=== PATIENT | female | born 1985 | race African-American/Black ===

== ENCOUNTER 2016-03-28 02:19 | Emergency (ER) | payer MEDICARE, MEDICAID ==
[2016-03-28] MEDS ORDERED: ONDANSETRON 4 MG ORAL DISINTEGRATING TAB (S0181) As Ordered ONE (03:12)
--- NOTE | 2016-03-28 04:30 | REPUSA ---
CLINICAL HISTORY: Pelvic pain. TECHNIQUE: Realtime sonographic images were obtained in multiple projections via TA approach. COMMENTS: The uterus is anteverted measuring 8.1x4.1 x 5.3 cm. The endometrial echo pattern is within normal li mits measuring 12.7mm in thickness. There is no evidence of free fluid within the pelvic cul-de-sac. The right ovary measures 3.3x1.4x2.1 cm and the left ovary measures 5.3 times a 2.6x3.7 mm . Both ova julien are free of solid mass. There is a left ovarian cyst measuring 3.7x2.9x2.5 cm. There is no evidence for abnormal vascularity. IMPRESSION: Left ovarian cyst measuring 3.7x2.9x2.5 cm. Thank you for your kind referral of this patient.
[2016-03-28] MEDS ORDERED: metroNIDAZOLE (FLAGYL) 500 MG TAB As Ordered ONE (05:03)
--- NOTE | 2016-03-28 05:17 | EDDOCDS ---
Physician Documentation [facility] Name: Cheyanne Lopez Age: 30 yrs Sex: Female : 1985 Arrival Date: 03/28/2016 Time: 02:19 Bed 12 Private MD: Disposition: 03/28/16 04:52 Discharged to Home/Self Care. Impression: Other ovarian cysts - left, Vaginitis, vulvitis and vulvovaginitis in diseases classified elsewhere - Bacterial Vaginosis, Noninfective gastroenteritis and colitis, unspecified - Food Poisoning. - Condition is Stable. - Discharge Instructions: Bacterial Vaginosis, Ovarian Cyst, Ovarian Cyst, Vyra-ma-Ioaq, Bacterial Vaginosis, Brdk-dg-Lvhd, Food Poisoning, Food Poisoning, Mxwj-[id number]-Scru. - Prescriptions for Flagyl 500 mg Oral Tablet - take 1 tablet by ORAL route every 12 hours for 7 days; 14 tablet. - Medication Reconciliation, Local Pharmacy Hours form. - Follow up: Private Physician; When: 1 week; Reason: Continuance of care. - Problem is an acute exacerbation. - Symptoms have improved. - Notes: FOLLOW UP WITH LYLES WOMAN MARKETING AUTOMATION ANALYST FOR FURTHER MANAGEMENT OF YOUR OVARIAN CYST. Historical: - Allergies: Coconut; Latex; - Home Meds: 1. Excedrin Extra Strength 250-250-65 mg Oral tab 1 tab as needed - PMHx: GERD; Hiatal Hernia; Obesity; PE; - Social history: Smoking status: Patient states former smoker of tobacco. Race: Black or , Ethnicity: Not or No barriers to communication noted, The patient speaks fluent [place], Preferred Language: [place]. - Family history: Not pertinent. - : The pt / caregiver states he / she is not on anticoagulants. Home medication list is obtained from the patient. - Exposure Risk Screening:: None identified. 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 1 in. (154.94 cm) (R); Pain 8/10; 02:29 Body Mass Index 49.69 (119.29 kg, 154.94 cm) jmv MDM: 03:00 UCG by Nursing ordered. mm11 03:00 Set up pelvic ordered. mm11 03:00 Ondansetron ODT (Peds >25kg) Oral Disintegrating Tablet 4 mg PO once ordered. mm11 03:01 UA Ordered. EDMS 03:01 Urine Culture Ordered. EDMS 03:37 -US Pelvic Non-Ob Complete Ordered. EDMS 03:38 GC & Chlamydia Amplification Ordered. EDMS 03:38 Wet Prep Ordered. EDMS 03:39 DUPLEX SCAN LIMITED (DOPPLER)+US Ordered. EDMS 03:53 Financial registration complete. [facility] 03:53 [facility] Payment Agreement was scanned into [employer] and attached to record. [facility] 04:31 UA Reviewed. [facility] 04:31 Wet Prep Reviewed. [facility] 04:52 metroNIDAZOLE 500 mg PO once ordered. 11 Point of Care Testing: Urine : 03:52 hCG Reading: Negative; cf2 Ranges: Administered Medications: 03:13 Drug: Ondansetron ODT (Peds >25kg) 4 mg [ondansetron 4 mg disintegrating tablet (1 cf2 tabs)] Route: PO; 05:13 Drug: metroNIDAZOLE 500 mg [metronidazole 500 mg tablet (1 tabs)] Route: PO; kas2 Signatures: Dispatcher MedHost EDMS Jose Alejandre, DO 11 Elizabeth Espinosa Adelaida Torres RN RN kas2 Maggie Holloway RN RN cf2 The chart was reviewed and I authenticate all verbal orders and agree with the evaluation and treatment provided.Attachments: 03:53 [facility] Payment Agreement [facility] MTDD
--- NOTE | 2016-03-28 05:17 | EDDOCDS ---
Nurse's Notes [facility] Name: Cheyanne Lopez Age: 30 yrs Sex: Female : 1985 Arrival Date: 03/28/2016 Time: 02:19 Bed 12 Private MD: Diagnosis: Other ovarian cysts-left;Vaginitis, vulvitis and vulvovaginitis in diseases classified elsewhere-Bacterial Vaginosis;Noninfective gastroenteritis and colitis, unspecified-Food Poisoning Presentation: 03/28 02:32 Presenting complaint: Patient states: "vomited three times after eating cheeseburger, cf2 chicken nuggets, and fries". Patient states pelvic pain x's 2 days, "stopped having sex cause it hurt". Patient states took test 2 days ago and it was negative. Adult Sepsis Screening: The patient does not have new or worsening altered mentation. Patient's respiratory rate is less than 22. Systolic blood pressure is greater than 100. Patient has a qSOFA score of 0- Negative Sepsis Screen. Suicide/Homicide risk assessment- the patient denies having any suicidal and/or homicidal ideations and does not present with any other emotional, behavioral or mental health complaints. Status: Patient is not a health service worker or dependent. Transition of care: patient was not received from another setting of care. 02:32 Acuity: ADIEL Level 4 cf2 02:32 Method Of Arrival: Ambulance cf2 Triage Assessment: 02:30 General: Appears in no apparent distress, comfortable. Pain: Denies pain. Pt Declines cf2 HIV testing. The patient is triaged at the bedside. See Assessment in Nurses Notes section of ED record. Neurological: No deficits noted. EENT: No deficits noted. Cardiovascular: No deficits noted. Respiratory: No deficits noted. : Reports cramping. 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 Excedrin Extra Strength 250-250-65 mg Oral tab 1 tab as needed - PMHx: GERD; Hiatal Hernia; Obesity; PE; - Social history: Smoking status: Patient states former smoker of tobacco. Race: Black or , Ethnicity: Not or No barriers to communication noted, The patient speaks fluent Panamanian, Preferred Language: Panamanian. - Family history: Not pertinent. - : The pt / caregiver states he / she is not on anticoagulants. Home medication list is obtained from the patient. - Exposure Risk Screening:: None identified. Screenin:38 Screening information is obtained from the patient. Fall risk: No risks identified. cf2 Assistance ADL's: requires no assistance with activities of daily living. Abuse/DV Screen: The patient / caregiver reports he/she is: not in a situation that causes fear, pain or injury. Nutritional screening: No deficits noted. Advance Directives: Further advance directive information is declined. home support is adequate. Assessment: 02:38 GI: Abdomen is flat, obese, Bowel sounds present X 4 quads. Abd is soft Abd is non cf2 tender. : Reports cramping pain. 02:49 Adult Sepsis Screening: The patient does not have new or worsening altered mentation. cf2 Patient's respiratory rate is less than 22. Systolic blood pressure is greater than 100. Patient has a qSOFA score of 0- Negative Sepsis Screen. General: Appears in no apparent distress, comfortable, Behavior is appropriate for age, cooperative. Pain: Denies pain. Neurological: No deficits noted. EENT: No deficits noted. Cardiovascular: No deficits noted. Respiratory: No deficits noted. Derm: No deficits noted. Musculoskeletal: No deficits noted. Injury Description: No known injury. 03:52 Reassessment: Patient appears in no apparent distress at this time. Patient denies pain cf2 at this time. Patient states feeling better. Patient states symptoms have improved. Vital Signs: 02:29 BP 144 / 97; Pulse 83; Resp 20; Temp 97.3(O); Pulse Ox 100% on R/A; Weight 119.29 kg jmv (R); Height 5 ft. 1 in. (154.94 cm) (R); Pain 8/10; 02:29 Body Mass Index 49.69 (119.29 kg, 154.94 cm) jmv Vitals: 02:37 Log In Time N/A - ambulance arrival. cf2 ED Course: 02:20 Patient visited by Reagan Mendes PCA. mdr 02:20 Patient moved to Waiting mdr 02:21 Nataliya Jung,RN is Primary Nurse. mdr 02:21 Patient moved to 12 mdr 02:30 Primary Nurse role handed off by Nataliya Jung,SEBASTIEN sls1 02:30 Maggie Holloway,RN is Primary Nurse. cf2 02:30 Patient visited by Maggie Holloway,SEBASTIEN. cf2 02:30 Pt greeted and oriented to ED. Patient advised of names of staff involved in care, jm location of call melissa, wait times and NPO status. Patient has correct armband on for positive identification. Placed in gown. Bed in low position. Call light in reach. Side rails up X2. 02:31 Patient visited by Burt West PCA. jmv 02:34 Triage Initiated cf2 02:38 The patient / caregiver is instructed regarding the plan of care and ED course. cf2 Property :Personal belongings accompany Pt. Door closed. Noise minimized. Visitors limited. Lights dimmed. Moved to private room. Verbal reassurance given. Warm blanket given. Pillow given. Head of bed elevated. Diet: Patient is NPO. 02:38 No procedures done that require assistance. cf2 02:43 Jose Alejandre DO is Attending Physician. mm11 02:43 Patient visited by Jose Alejandre DO. mm11 02:48 Patient visited by Maggie Holloway,SEBASTIEN. cf2 02:59 Patient visited by Jose Alejandre DO. mm11 03:00 No procedures done that require assistance Assist provider with pelvic exam: Set up 2 pelvic tray. Specimens sent to lab. Performed by Jose Alejandre DO Patient tolerated well. 03:26 Patient visited by Maggie Holloway,SEBASTIEN. cf2 03:26 Urine Culture Sent. cf2 03:26 UA Sent. cf2 03:44 GC & Chlamydia Amplification Sent. cf2 03:44 Wet Prep Sent. cf2 03:52 Patient visited by Maggie Holloway,SEBASTIEN. cf2 03:52 No IV's were initiated during this patient's visit. cf2 03:53 [facility] [place] Payment Agreement was scanned into [employer] and attached to record. [facility] 04:33 - Pelvic Non-Ob Complete Returned. EDMS 04:44 Patient visited by Jose Alejandre DO. mm11 05:00 Patient visited by Maggie Holloway,SEBASTIEN. cf2 Administered Medications: 03:13 Drug: Ondansetron ODT (Peds >25kg) 4 mg [ondansetron 4 mg disintegrating tablet (1 cf2 tabs)] Route: PO; 05:13 Drug: metroNIDAZOLE 500 mg [metronidazole 500 mg tablet (1 tabs)] Route: PO; [facility] Point of Care Testing: Urine : 03:52 hCG Reading: Negative; cf2 Ranges: Order Results: Lab Order: UA; SPEC'M 03/28/16 03:24 Test: APPEARANCE, URINE; Value: HAZY; Range: CLEAR; Status: F Test: COLOR, URINE; Value: YELLOW; Range: YELLOW; Status: F Test: PH,URINE; Value: 6.0; Range: 5.0-9.0; Units: UNITS; Status: F Test: SPECIFIC GRAVITY URINE AUTO; Value: 1.019; Range: 1.002-1.035; Status: F Test: PROTEIN, URINE AUTO; Value: NEGATIVE; Range: NEGATIVE; Units: mg/dL; Status: F Test: GLUCOSE, URINE (UA) AUTO; Value: NEGATIVE; Range: NEGATIVE; Units: mg/dL; Status: F Test: KETONE, URINE AUTO; Value: NEGATIVE; Range: NEGATIVE; Units: mg/dL; Status: F Test: UROBILINOGEN, URINE AUTO; Value: 0.2; Range: 0.0-2.0; Units: mg/dL; Status: F Test: BILIRUBIN, URINE AUTO; Value: NEGATIVE; Range: NEGATIVE; Status: F Test: NITRITE, URINE AUTO; Value: NEGATIVE; Range: NEGATIVE; Status: F Test: LEUKOCYTE ESTERASE, URINE AUTO; Value: NEGATIVE; Range: NEGATIVE; Status: F Test: BLOOD, URINE BLOOD; Value: NEGATIVE; Range: NEGATIVE; Status: F Test: WBC, URINE AUTO; Value: 2; Range: 0-3; Units: /HPF; Status: F Test: RBC, URINE AUTO; Value: 1; Range: 0-3; Units: /HPF; Status: F Test: BACTERIA, URINE AUTO; Value: 1+; Range: NEGATIVE; Abnormal: Above high normal; Status: F Test: SQUAMOUS EPITHELIAL CELL UR AU; Value: 8; Range: 0-6; Units: /HPF; Status: F Test: MUCUS, URINE; Value: SMALL; Range: NEGATIVE; Status: F Test: HYALINE CAST, URINE AUTO; Value: 0; Range: 0-1; Units: /LPF; Status: F Lab Order: Wet Prep; SPEC'M 03/28/16 03:24 Test: WET PREP; Value: WET PREP RESULT; Status: F Test: WET PREP; Value: MODERATE EPITHELIAL CELLS PRESENT; Status: F Test: WET PREP; Value: FEW CLUE CELLS PRESENT; Status: F Test: WET PREP; Value: MODERATE WBC; Status: F Test: WET PREP; Value: FEW SHORT RODS PRESENT; Status: F Radiology Order: -US Pelvic Non-Ob Complete Test: -US Pelvic Non-Ob Complete REASON FOR EXAMINATION: Adnexal Pain r/o Torsion; ; CLINICAL HISTORY: Pelvic pain.; TECHNIQUE: Realtime sonographic images were obtained in multiple projections via TA approach.; COMMENTS:; The uterus is anteverted measuring 8.1x4.1 x 5.3 cm. The endometrial echo pattern is within normal li; mits measuring 12.7mm in thickness.; There is no evidence of free fluid within the pelvic cul-de-sac.; The right ovary measures 3.3x1.4x2.1 cm and the left ovary measures 5.3 times a 2.6x3.7 mm . Both ova; julien are free of solid mass. There is a left ovarian cyst measuring 3.7x2.9x2.5 cm.; There is no evidence for abnormal vascularity.; IMPRESSION:; Left ovarian cyst measuring 3.7x2.9x2.5 cm.; Thank you for your kind referral of this patient.; ; Outcome: 04:52 Discharge ordered by Provider. mm11 05:14 Discharge Assessment: patient administered narcotics - no. The following High Risk kas2 Discharge criteria are identified: None. Discharged to home ambulatory, with friend. Condition: good Condition: stable Condition: improved. 05:14 Ultrasound Study completed. kas2 05:15 Patient left the ED. kas2 Signatures: Dispatcher Med[employer] EDMS Jose Alejandre DO DO mm11 Xin Kelley RN RN [facility] Elizabeth Espinosa Mitchell, SCIENCE SPECIALIST SCIENCE SPECIALIST Adelaida Perez RN RN kas2 Maggie Holloway RN RN cf2 Burt West, SCIENCE SPECIALIST SCIENCE SPECIALIST jmv Corrections: (The following items were deleted from the chart) 05:15 05:14 CT Study completed. kas2 kas2 MTDD
--- NOTE | 2016-03-30 06:16 | EDDOCDS ---
Nurse's Notes [facility] Name: Cheyanne Lopez Age: 30 yrs Sex: Female : 1985 Arrival Date: 03/28/2016 Time: 02:19 Bed 12 Private MD: Diagnosis: Other ovarian cysts-left;Vaginitis, vulvitis and vulvovaginitis in diseases classified elsewhere-Bacterial Vaginosis;Noninfective gastroenteritis and colitis, unspecified-Food Poisoning Presentation: 03/28 02:32 Presenting complaint: Patient states: "vomited three times after eating cheeseburger, cf2 chicken nuggets, and fries". Patient states pelvic pain x's 2 days, "stopped having sex cause it hurt". Patient states took test 2 days ago and it was negative. Adult Sepsis Screening: The patient does not have new or worsening altered mentation. Patient's respiratory rate is less than 22. Systolic blood pressure is greater than 100. Patient has a qSOFA score of 0- Negative Sepsis Screen. Suicide/Homicide risk assessment- the patient denies having any suicidal and/or homicidal ideations and does not present with any other emotional, behavioral or mental health complaints. Status: Patient is not a service observer chief or dependent. Transition of care: patient was not received from another setting of care. 02:32 Acuity: ADIEL Level 4 cf2 02:32 Method Of Arrival: Ambulance cf2 Triage Assessment: 02:30 General: Appears in no apparent distress, comfortable. Pain: Denies pain. Pt Declines cf2 HIV testing. The patient is triaged at the bedside. See Assessment in Nurses Notes section of ED record. Neurological: No deficits noted. EENT: No deficits noted. Cardiovascular: No deficits noted. Respiratory: No deficits noted. : Reports cramping. 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 Excedrin Extra Strength 250-250-65 mg Oral tab 1 tab as needed - PMHx: GERD; Hiatal Hernia; Obesity; PE; - Social history: Smoking status: Patient states former smoker of tobacco. Race: Black or , Ethnicity: Not or No barriers to communication noted, The patient speaks fluent Gibraltarian, Preferred Language: Gibraltarian. - Family history: Not pertinent. - : The pt / caregiver states he / she is not on anticoagulants. Home medication list is obtained from the patient. - Exposure Risk Screening:: None identified. Screenin:38 Screening information is obtained from the patient. Fall risk: No risks identified. cf2 Assistance ADL's: requires no assistance with activities of daily living. Abuse/DV Screen: The patient / caregiver reports he/she is: not in a situation that causes fear, pain or injury. Nutritional screening: No deficits noted. Advance Directives: Further advance directive information is declined. home support is adequate. Assessment: 02:38 GI: Abdomen is flat, obese, Bowel sounds present X 4 quads. Abd is soft Abd is non cf2 tender. : Reports cramping pain. 02:49 Adult Sepsis Screening: The patient does not have new or worsening altered mentation. cf2 Patient's respiratory rate is less than 22. Systolic blood pressure is greater than 100. Patient has a qSOFA score of 0- Negative Sepsis Screen. General: Appears in no apparent distress, comfortable, Behavior is appropriate for age, cooperative. Pain: Denies pain. Neurological: No deficits noted. EENT: No deficits noted. Cardiovascular: No deficits noted. Respiratory: No deficits noted. Derm: No deficits noted. Musculoskeletal: No deficits noted. Injury Description: No known injury. 03:52 Reassessment: Patient appears in no apparent distress at this time. Patient denies pain cf2 at this time. Patient states feeling better. Patient states symptoms have improved. Vital Signs: 02:29 BP 144 / 97; Pulse 83; Resp 20; Temp 97.3(O); Pulse Ox 100% on R/A; Weight 119.29 kg jmv (R); Height 5 ft. 1 in. (154.94 cm) (R); Pain 8/10; 05:20 BP 127 / 83; Pulse 95; Resp 18; Temp 96.8(O); Pulse Ox 98% on R/A; Pain 4/10; kas2 02:29 Body Mass Index 49.69 (119.29 kg, 154.94 cm) jm Vitals: 02:37 Log In Time N/A - ambulance arrival. cf2 ED Course: 02:20 Patient visited by Reagan Mendes PCA. mdr 02:20 Patient moved to Waiting mdr 02:21 Nataliya Jung,SEBASTIEN is Primary Nurse. mdr 02:21 Patient moved to 12 mdr 02:30 Primary Nurse role handed off by Nataliya Jung RN sls1 02:30 Maggie Holloway,SEBASTIEN is Primary Nurse. cf2 02:30 Patient visited by Maggie Holloway,SEBASTIEN. cf2 02:30 Pt greeted and oriented to ED. Patient advised of names of staff involved in care, jmv location of call melissa, wait times and NPO status. Patient has correct armband on for positive identification. Placed in gown. Bed in low position. Call light in reach. Side rails up X2. 02:31 Patient visited by Burt West PCA. v 02:34 Triage Initiated cf2 02:38 The patient / caregiver is instructed regarding the plan of care and ED course. cf2 Property :Personal belongings accompany Pt. Door closed. Noise minimized. Visitors limited. Lights dimmed. Moved to private room. Verbal reassurance given. Warm blanket given. Pillow given. Head of bed elevated. Diet: Patient is NPO. 02:38 No procedures done that require assistance. cf2 02:43 Jose Alejandre DO is Attending Physician. mm11 02:43 Patient visited by Jose Alejandre DO. mm11 02:48 Patient visited by Maggie Holloway RN. cf2 02:59 Patient visited by Jose Alejandre DO. mm11 03:00 No procedures done that require assistance Assist provider with pelvic exam: Set up cf2 pelvic tray. Specimens sent to lab. Performed by Jose Alejandre DO Patient tolerated well. 03:26 Patient visited by Maggie Holloway RN. cf2 03:26 Urine Culture Sent. cf2 03:26 UA Sent. cf2 03:44 GC & Chlamydia Amplification Sent. cf2 03:44 Wet Prep Sent. cf2 03:52 Patient visited by Maggie Holloway RN. cf2 03:52 No IV's were initiated during this patient's visit. cf2 03:53 [place] [place] was scanned into [employer] and attached to record. [facility] 04:33 -US Pelvic Non-Ob Complete Returned. EDMS 04:44 Patient visited by Jose Alejandre DO. mm11 05:00 Patient visited by Maggie Holloway RN. cf2 14:05 T-Sheet-- Draft Copy was scanned into [employer] and attached to record. gb Administered Medications: 03:13 Drug: Ondansetron ODT (Peds >25kg) 4 mg [ondansetron 4 mg disintegrating tablet (1 cf2 tabs)] Route: PO; 05:13 Drug: metroNIDAZOLE 500 mg [metronidazole 500 mg tablet (1 tabs)] Route: PO; kas2 Point of Care Testing: Urine : 03:52 hCG Reading: Negative; cf2 Ranges: Order Results: Lab Order: UA; SPEC'M 03/28/16 03:24 Test: APPEARANCE, URINE; Value: HAZY; Range: CLEAR; Status: F Test: COLOR, URINE; Value: YELLOW; Range: YELLOW; Status: F Test: PH,URINE; Value: 6.0; Range: 5.0-9.0; Units: UNITS; Status: F Test: SPECIFIC GRAVITY URINE AUTO; Value: 1.019; Range: 1.002-1.035; Status: F Test: PROTEIN, URINE AUTO; Value: NEGATIVE; Range: NEGATIVE; Units: mg/dL; Status: F Test: GLUCOSE, URINE (UA) AUTO; Value: NEGATIVE; Range: NEGATIVE; Units: mg/dL; Status: F Test: KETONE, URINE AUTO; Value: NEGATIVE; Range: NEGATIVE; Units: mg/dL; Status: F Test: UROBILINOGEN, URINE AUTO; Value: 0.2; Range: 0.0-2.0; Units: mg/dL; Status: F Test: BILIRUBIN, URINE AUTO; Value: NEGATIVE; Range: NEGATIVE; Status: F Test: NITRITE, URINE AUTO; Value: NEGATIVE; Range: NEGATIVE; Status: F Test: LEUKOCYTE ESTERASE, URINE AUTO; Value: NEGATIVE; Range: NEGATIVE; Status: F Test: BLOOD, URINE BLOOD; Value: NEGATIVE; Range: NEGATIVE; Status: F Test: WBC, URINE AUTO; Value: 2; Range: 0-3; Units: /HPF; Status: F Test: RBC, URINE AUTO; Value: 1; Range: 0-3; Units: /HPF; Status: F Test: BACTERIA, URINE AUTO; Value: 1+; Range: NEGATIVE; Abnormal: Above high normal; Status: F Test: SQUAMOUS EPITHELIAL CELL UR AU; Value: 8; Range: 0-6; Units: /HPF; Status: F Test: MUCUS, URINE; Value: SMALL; Range: NEGATIVE; Status: F Test: HYALINE CAST, URINE AUTO; Value: 0; Range: 0-1; Units: /LPF; Status: F Lab Order: Urine Culture; SPEC'M 03/28/16 03:24 Test: URINE CULTURE; Value: <EXTERNAL COMMENT eCWMed> FULL REPORT IN LAB NOTES (eCW and Medent).; Status: F Test: URINE CULTURE; Value: URINE CULTURE RESULT; Status: F Test: URINE CULTURE; Value: NO GROWTH CLINICAL SIGNIFICANCE 2 OR MORE ORGANISMS; Status: F Lab Order: Wet Prep; SPEC'M 03/28/16 03:24 Test: WET PREP; Value: WET PREP RESULT; Status: F Test: WET PREP; Value: MODERATE EPITHELIAL CELLS PRESENT; Status: F Test: WET PREP; Value: FEW CLUE CELLS PRESENT; Status: F Test: WET PREP; Value: MODERATE WBC; Status: F Test: WET PREP; Value: FEW SHORT RODS PRESENT; Status: F Radiology Order: -US Pelvic Non-Ob Complete Test: -US Pelvic Non-Ob Complete REASON FOR EXAMINATION: Adnexal Pain r/o Torsion; ; CLINICAL HISTORY: Pelvic pain.; TECHNIQUE: Realtime sonographic images were obtained in multiple projections via TA approach.; COMMENTS:; The uterus is anteverted measuring 8.1x4.1 x 5.3 cm. The endometrial echo pattern is within normal li; mits measuring 12.7mm in thickness.; There is no evidence of free fluid within the pelvic cul-de-sac.; The right ovary measures 3.3x1.4x2.1 cm and the left ovary measures 5.3 times a 2.6x3.7 mm . Both ova; julien are free of solid mass. There is a left ovarian cyst measuring 3.7x2.9x2.5 cm.; There is no evidence for abnormal vascularity.; IMPRESSION:; Left ovarian cyst measuring 3.7x2.9x2.5 cm.; Thank you for your kind referral of this patient.; ; Outcome: 04:52 Discharge ordered by Provider. mm11 05:14 Discharge Assessment: patient administered narcotics - no. The following High Risk kas2 Discharge criteria are identified: None. Discharged to home ambulatory, with friend. Condition: good Condition: stable Condition: improved. 05:14 Ultrasound Study completed. [facility] 05:15 Patient left the ED. [facility] Signatures: Dispatcher Med[employer] EDMS Jewel Nandini, Reg Reg gb Alejandre Jose, DO DO mm11 Xin Kelley, RN RN [facility] Elizabeth Espinosa Mitchell, SLATE TRIMMER SLATE TRIMMER mdr Adelaida Turpin RN RN kas2 Maggie Holloway RN RN cf2 Burt West, SLATE TRIMMER SLATE TRIMMER jmv Corrections: (The following items were deleted from the chart) 05:15 05:14 CT Study completed. [facility] Chart Complete MTDD
--- NOTE | 2016-03-30 06:16 | EDDOCDS ---
Physician Documentation [facility] Name: Cheyanne Lopez Age: 30 yrs Sex: Female : 1985 Arrival Date: 03/28/2016 Time: 02:19 Bed 12 Private MD: Disposition: 03/28/16 04:52 Discharged to Home/Self Care. Impression: Other ovarian cysts - left, Vaginitis, vulvitis and vulvovaginitis in diseases classified elsewhere - Bacterial Vaginosis, Noninfective gastroenteritis and colitis, unspecified - Food Poisoning. - Condition is Stable. - Discharge Instructions: Bacterial Vaginosis, Ovarian Cyst, Ovarian Cyst, [id number], Bacterial Vaginosis, [id number], Food Poisoning, Food Poisoning, Gxzw-ot-Funw. - Prescriptions for Flagyl 500 mg Oral Tablet - take 1 tablet by ORAL route every 12 hours for 7 days; 14 tablet. - Medication Reconciliation, Local Pharmacy Hours form. - Follow up: Private Physician; When: 1 week; Reason: Continuance of care. - Problem is an acute exacerbation. - Symptoms have improved. - Notes: FOLLOW UP WITH [employer]OM[employer] HOMIC[employer] SQUAD SERGEANT FOR FURTHER MANAGEMENT OF YOUR OVARIAN CYST. Historical: - Allergies: Coconut; Latex; - Home Meds: 1. Excedrin Extra Strength 250-250-65 mg Oral tab 1 tab as needed - PMHx: GERD; Hiatal Hernia; Obesity; PE; - Social history: Smoking status: Patient states former smoker of tobacco. Race: Black or , Ethnicity: Not or No barriers to communication noted, The patient speaks fluent [place] Citizen, Preferred Language: [place] Citizen. - Family history: Not pertinent. - : The pt / caregiver states he / she is not on anticoagulants. Home medication list is obtained from the patient. - Exposure Risk Screening:: None identified. SHIRT CLEANER: 03/28 02:37 LMP 03/04/2016 cf2 Vital Signs: 02:29 BP 144 / 97; Pulse 83; Resp 20; Temp 97.3(O); Pulse Ox 100% on R/A; Weight 119.29 kg / jmv 262.99 lbs (R); Height 5 ft. 1 in. (154.94 cm) (R); Pain 8/10; 05:20 BP 127 / 83; Pulse 95; Resp 18; Temp 96.8(O); Pulse Ox 98% on R/A; Pain 4/10; kas2 02:29 Body Mass Index 49.69 (119.29 kg, 154.94 cm) jmv MDM: 03:00 UCG by Nursing ordered. 11 03:00 Set up pelvic ordered. 11 03:00 Ondansetron ODT (Peds >25kg) Oral Disintegrating Tablet 4 mg PO once ordered. 11 03:01 UA Ordered. EDMS 03:01 Urine Culture Ordered. EDMS 03:37 -US Pelvic Non-Ob Complete Ordered. EDMS 03:38 GC & Chlamydia Amplification Ordered. EDMS 03:38 Wet Prep Ordered. EDMS 03:39 DUPLEX SCAN LIMITED (DOPPLER)+US Ordered. EDMS 03:53 Financial registration complete. [facility] 03:53 [facility] Payment Agreement was scanned into [employer] and attached to record. [facility] 04:[address] [facility] 04:[address] [facility] 04:52 metroNIDAZOLE 500 mg PO once ordered. [facility] 14:05 T-Sheet-- Draft Copy was scanned into [employer] and attached to record. [facility] Point of Care Testing: Urine : 03:52 hCG Reading: Negative; cf2 Ranges: Administered Medications: 03:13 Drug: Ondansetron ODT (Peds >25kg) 4 mg [ondansetron 4 mg disintegrating tablet (1 cf2 tabs)] Route: PO; 05:13 Drug: metroNIDAZOLE 500 mg [metronidazole 500 mg tablet (1 tabs)] Route: PO; kas2 Signatures: Dispatcher [employer] EDGA Nandini Holloway, Noble Reg Jose Alejandre DO DO [facility] Elizabeth Espinosa [facility] Adelaida TurpinRN RN kas2 Maggie Holloway RN RN cf2 The chart was reviewed and I authenticate all verbal orders and agree with the evaluation and treatment provided.Attachments: 03:53 [facility] Payment Agreement [facility] 14:05 T-Sheet-- Draft Copy Chart Complete MTDD
--- NOTE | 2016-03-30 06:16 | EDDOCDS ---
Physician Documentation [facility] Name: Cheyanne Lopez Age: 30 yrs Sex: Female : 1985 Arrival Date: 03/28/2016 Time: 02:19 Bed 12 Private MD: Disposition: 03/28/16 04:52 Discharged to Home/Self Care. Impression: Other ovarian cysts - left, Vaginitis, vulvitis and vulvovaginitis in diseases classified elsewhere - Bacterial Vaginosis, Noninfective gastroenteritis and colitis, unspecified - Food Poisoning. - Condition is Stable. - Discharge Instructions: Bacterial Vaginosis, Ovarian Cyst, Ovarian Cyst, [id number], Bacterial Vaginosis, Ibbf-lf-Djit, Food Poisoning, Food Poisoning, Vokx-[id number]. - Prescriptions for Flagyl 500 mg Oral Tablet - take 1 tablet by ORAL route every 12 hours for 7 days; 14 tablet. - Medication Reconciliation, Local Pharmacy Hours form. - Follow up: Private Physician; When: 1 week; Reason: Continuance of care. - Problem is an acute exacerbation. - Symptoms have improved. - Notes: FOLLOW UP WITH [employer] RENTAL SALES REPRESENTATIVE FOR FURTHER MANAGEMENT OF YOUR OVARIAN CYST. Historical: - Allergies: Coconut; Latex; - Home Meds: 1. Excedrin Extra Strength 250-250-65 mg Oral tab 1 tab as needed - PMHx: GERD; Hiatal Hernia; Obesity; PE; - Social history: Smoking status: Patient states former smoker of tobacco. Race: Black or , Ethnicity: Not or No barriers to communication noted, The patient speaks fluent [place], Preferred Language: [place]. - Family history: Not pertinent. - : The pt / caregiver states he / she is not on anticoagulants. Home medication list is obtained from the patient. - Exposure Risk Screening:: None identified. 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 1 in. (154.94 cm) (R); Pain 8/10; 05:20 BP 127 / 83; Pulse 95; Resp 18; Temp 96.8(O); Pulse Ox 98% on R/A; Pain 4/10; kas2 02:29 Body Mass Index 49.69 (119.29 kg, 154.94 cm) jmv MDM: 03:00 UCG by Nursing ordered. 11 03:00 Set up pelvic ordered. 11 03:00 Ondansetron ODT (Peds >25kg) Oral Disintegrating Tablet 4 mg PO once ordered. 11 03:01 UA Ordered. EDMS 03:01 Urine Culture Ordered. EDMS 03:37 -US Pelvic Non-Ob Complete Ordered. EDMS 03:38 GC & Chlamydia Amplification Ordered. EDMS 03:38 Wet Prep Ordered. EDMS 03:39 DUPLEX SCAN LIMITED (DOPPLER)+US Ordered. EDMS 03:53 Financial registration complete. [facility] 03:53 [facility] Payment Agreement was scanned into [employer] and attached to record. [facility] 04:31 UA Reviewed. [facility] 04:31 Wet Prep Reviewed. [facility] 04:52 metroNIDAZOLE 500 mg PO once ordered. [facility] 14:05 T-Sheet-- Draft Copy was scanned into [employer] and attached to record. [facility] Point of Care Testing: Urine : 03:52 hCG Reading: Negative; cf2 Ranges: Administered Medications: 03:13 Drug: Ondansetron ODT (Peds >25kg) 4 mg [ondansetron 4 mg disintegrating tablet (1 cf2 tabs)] Route: PO; 05:13 Drug: metroNIDAZOLE 500 mg [metronidazole 500 mg tablet (1 tabs)] Route: PO; kas2 Signatures: Dispatcher [employer] EDVA Nandini oHlloway, Noble Reg Jose Alejandre DO DO [facility] Elizabeth Espinosa [facility] Adelaida TurpinRN RN kas2 Maggie Holloway RN RN cf2 The chart was reviewed and I authenticate all verbal orders and agree with the evaluation and treatment provided.Attachments: 03:53 [facility] Payment Agreement [facility] 14:05 T-Sheet-- Draft Copy Chart Complete MTDD
== END 2016-03-28 05:15 | disposition home or self-care (01) ==
LOC: M ED 02:19
DX: N83.209 Unspecified ovarian cyst, unspecified side (principal); A08.4 Viral intestinal infection, unspecified; N76.0 Acute vaginitis; K21.9 Gastro-esophageal reflux disease without esophagitis; K44.9 Diaphragmatic hernia without obstruction or gangrene; E66.9 Obesity, unspecified; Z86.711 Personal history of pulmonary embolism; Z87.891 Personal history of nicotine dependence; Z91.018 Allergy to other foods; Z91.040 Latex allergy status

== ENCOUNTER → 2016-06-17 | Outpatient (CLI) | payer MEDICARE, MEDICAID ==
[2016-06-17 14:22] LABS: ANION GAP 9 MEQ/L (8-16); BLOOD UREA NITROGEN 7 MG/DL (7-18); CALCIUM LEVEL 8.9 MG/DL (8.5-10.1); CARBON DIOXIDE LEVEL 24 MEQ/L (21-32); CHLORIDE LEVEL 104 MEQ/L (98-107); CREATININE FOR GFR 0.71 MG/DL (0.55-1.02); GLOMERULAR FILTRATION RATE > 60.0 (>60); GLUCOSE, FASTING 161 MG/DL (70-105); SODIUM LEVEL 137 MEQ/L (136-145)
== END ==
LOC: M LAB 13:23
PROVIDERS: ATTEND Family Medicine
DX: E11.9 Type 2 diabetes mellitus without complications (principal)

== ENCOUNTER → 2016-06-27 | Outpatient (CLI) | payer MEDICARE, MEDICAID ==
[2016-06-27 14:54] LABS: CONTROL LINE HCG INT CTR LINE PRESENT
== END ==
LOC: M LAB 11:58
PROVIDERS: ATTEND Nurse Practitioner Women's Health
DX: N92.6 Irregular menstruation, unspecified (principal)

== ENCOUNTER → 2016-07-28 | Outpatient (CLI) | payer MEDICARE, MEDICAID | LOC: M LAB 07-25 11:45 | PROVIDERS: ATTEND Surgery | DX: Z01.812 Encounter for preprocedural laboratory examination (principal); K21.9 Gastro-esophageal reflux disease without esophagitis ==

== ENCOUNTER → 2016-08-10 | Outpatient (CLI) | payer MEDICARE, MEDICAID ==
--- NOTE | 2016-08-13 22:50 | SLEEPCENT ---
DATE OF PROCEDURE: 08/10/2016 REFERRING PHYSICIAN: Azalea Lovell Nocturnal polysomnography was performed due to concern for the obstructive sleep apnea syndrome in this patient with a history of excessive somnolence, nonrestorative sleep and elevated BMI. 6 hours and 41 minutes of data were reviewed. There were 217 minutes of sleep identified. Sleep latency was prolonged at 114 minutes. Rapid eye movement (REM) latency was normal at 85 minutes. Sleep architecture showed severe fragmentation. Progression was fair. There were two REM periods appreciated. Overall sleep efficiency was reduced, however, at 55%. EKG showed a sinus rhythm with an average heart rate of 80 beats per minute. Heart rate ranged 60 to 100 beats per minute. EEG showed reasonably normal waveforms for awake and sleep. There were 64 respiratory events identified of 10 seconds in duration or greater for an apnea/hypopnea index of 17.7. The events were primarily obstructive, not exclusive to sleep stage, more frequent, but not exclusive to the supine posture. Respiratory events were associated with arousal 9.1 times per hour and oxygen desaturations were seen into the 70s with some limb activity appreciated. No trains of events. Limb movement arousal index, however, was elevated at 7.7. IMPRESSION: 1. Moderate obstructive sleep apnea syndrome (G47.33), apnea-hypopnea index 17.7. 2. Mild periodic limb movement disorder (G47.61). Limb movement arousal index 7.7. RECOMMENDATION: The patient should be encouraged to return to the sleep disorder center for pressure therapy. In the interim, alcohol and sedative avoidance should be practiced and caution exercised during the operation of motor vehicles. Pending response to pressure therapy, interventions to reduce the frequency of arousals from limb activity may also be helpful.
== END ==
LOC: M SLEEP 20:00
PROVIDERS: ATTEND Nurse Practitioner Adult Health
DX: G47.30 Sleep apnea, unspecified (principal)

== ENCOUNTER → 2016-10-12 | Outpatient (CLI) | payer MEDICARE, MEDICAID ==
[~2016-10-12] MED LIST: ONDA8TAB7 PO; TOPI25TA10 PO
--- NOTE | 2016-10-18 08:02 | SLEEPCENT ---
DATE OF PROCEDURE: 10/12/2016 REQUESTING PROVIDER: Azalea Lovell NP INTERPRETATION: Nocturnal polysomnography was performed for the titration of pressure therapy in this patient with obstructive sleep apnea syndrome, apnea-hypopnea index of 17.7. For testing, a ResMed Quattro full face mask of small size was used, 4 cm of water pressure were applied to the circuit and the lights were extinguished. 7 hours and 17 minutes of data were reviewed. There were 363 minutes of sleep identified. Sleep latency was mildly prolonged at 25 minutes. Rapid eye movement (REM) latency was mildly prolonged at 120 minutes. Sleep architecture improved with optimal pressure therapy. There were four REM periods noted. Overall sleep efficiency was 84.3%. The patient's electrocardiogram (EKG) showed a sinus rhythm with an average heart rate of 76 beats per minute. Electroencephalogram (EEG) showed normal waveforms for awake and sleep. Respiratory events were fully palliated with a CPAP to a pressure of +8. There was some snoring that persisted and some persistent limb movements. Limb movement arousals occurred only 5.6 times per hour. IMPRESSION: Obstructive sleep apnea syndrome (G47.33). RECOMMENDATIONS: Nightly use of pressure therapy at 8 cm of water.
== END ==
LOC: M SLEEP 20:00
PROVIDERS: ATTEND Nurse Practitioner Adult Health
DX: G47.33 Obstructive sleep apnea (adult) (pediatric) (principal)

== ENCOUNTER 2016-12-26 11:31 | Emergency (ER) | payer MEDICARE, MEDICAID ==
[~2016-12-26] VITALS: Ht 154.9 cm; Wt 120.9 kg
[2016-12-26 11:31] VITALS: BP 131/82
[2016-12-26] MEDS ORDERED: TOPI25TA10 PO (11:45)
[2016-12-26] MEDS ORDERED: ONDA8TAB7 PO (11:45)
== END 2016-12-26 12:40 | disposition home or self-care (01) ==
LOC: M ED 11:31
DX: Z51.89 Encounter for other specified aftercare (principal); Z98.84 Bariatric surgery status

== ENCOUNTER → 2017-01-21 | Outpatient (CLI) | payer MEDICARE, MEDICAID ==
[2017-01-21 15:20] LABS: BASO # 0.1 10^3/uL (0.0-0.2); EOS # 0.5 10^3/uL (0.0-0.50); EOS % 7.2 % (0.0-3.0); IMMATURE GRANULOCYTE % 0.2 % (0-0); LYMPH # 2.4 10^3/uL (1.5-4.5); LYMPH % 38.6 % (24.0-44.0); MEAN CORPUSCULAR HEMOGLOBIN 27.3 pg (27.0-33.0); MEAN CORPUSCULAR HGB CONC 33.1 g/dl (32.0-36.5); MEAN CORPUSCULAR VOLUME 82.4 fl (80.0-96.0); MONO # 0.5 10^3/uL (0.0-0.8); MONO % 8.7 % (0.0-5.0); NEUTROPHILS # 2.8 10^3/uL (1.8-7.7); NEUTROPHILS % 44.3 % (36.0-66.0); PLATELET COUNT, AUTOMATED 279 10^3/uL (150-450); WHITE BLOOD COUNT 6.2 10^3/uL (4.0-10.0)
[2017-01-21 15:30] LABS: ALBUMIN 3.4 GM/DL (3.2-5.2); ALBUMIN/GLOBULIN RATIO 0.89 (1.00-1.93); ALKALINE PHOSPHATASE 96 U/L (45-117); ALT/SGPT 75 U/L (12-78); ANION GAP 6 MEQ/L (8-16); AST/SGOT 28 U/L (7-37); BILIRUBIN,TOTAL 0.4 MG/DL (0.2-1.0); BLOOD UREA NITROGEN 6 MG/DL (7-18); CALCIUM LEVEL 8.9 MG/DL (8.5-10.1); CARBON DIOXIDE LEVEL 31 MEQ/L (21-32); CHLORIDE LEVEL 105 MEQ/L (98-107); CREATININE FOR GFR 0.68 MG/DL (0.55-1.02); FERRITIN 147 NG/ML (8-252); GLOMERULAR FILTRATION RATE > 60.0 (>60); GLUCOSE, FASTING 72 MG/DL (70-105); MAGNESIUM LEVEL 2.1 MG/DL (1.8-2.4); PERCENT SATURATION 21.5 % (13.2-45.0); PHOSPHORUS LEVEL 3.6 MG/DL (2.5-4.9); SODIUM LEVEL 142 MEQ/L (136-145); TOTAL IRON BINDING CAPACITY 274 UG/DL (250-450); TOTAL PROTEIN 7.2 GM/DL (6.4-8.2)
[2017-01-21 15:34] LABS: VITAMIN B12 LEVEL 1362 PG/ML (247-911)
[2017-01-23 11:31] LABS: PRETREATED FOLATE FOR RBCFOL 16.1 NG/ML
== END ==
LOC: M LAB 14:10
PROVIDERS: ATTEND Surgery
DX: K91.2 Postsurgical malabsorption, not elsewhere classified (principal); E55.9 Vitamin D deficiency, unspecified; Z98.84 Bariatric surgery status

== ENCOUNTER → 2017-02-27 | Outpatient (CLI) | payer MEDICARE, MEDICAID | LOC: M SLEEP 19:55 | DX: G47.33 Obstructive sleep apnea (adult) (pediatric) (principal) ==

== ENCOUNTER 2017-03-13 17:14 | Emergency (ER) | payer MEDICARE, MEDICAID ==
[2017-03-13] MEDS: ONDANSETRON 4 MG ORAL DISINTEGRATING TAB (S0181) PO (19:21)
== END 2017-03-13 19:30 | disposition home or self-care (01) ==
LOC: M ED 17:14
DX: R13.10 Dysphagia, unspecified (principal); E11.9 Type 2 diabetes mellitus without complications; Z98.0 Intestinal bypass and anastomosis status; Z79.899 Other long term (current) drug therapy
CPT/HCPCS: 99283

== ENCOUNTER → 2017-09-16 | Outpatient (CLI) | payer MEDICARE, MEDICAID ==
[2017-09-16 12:24] LABS: IONIZED CALCIUM 4.8 MG/DL (4.5-5.3)
[2017-09-16 13:09] LABS: CHOLESTEROL LEVEL 166 MG/DL (<200); CHOLESTEROL RISK RATIO 2.477 (<5); HDL CHOLESTEROL 67 MG/DL (>40); IRON (FE) 130 UG/DL (50-170); LDL CHOLESTEROL 84.2 MG/DL (<100); NON-HDL-C 99 MG/DL; TRIGLYCERIDES LEVEL 74 MG/DL (<150)
[2017-09-16 13:20] LABS: TOTAL 25(OH) VITAMIN D 54.1 NG/ML (30.0-100.0)
[2017-09-16 13:21] LABS: FOLATE > 24.0 NG/ML (>5.4); VITAMIN B12 LEVEL > 2000 PG/ML (247-911)
[2017-09-16 13:28] LABS: ESTIMATED AVERAGE GLUCOSE 100 MG/DL (60-110); HEMOGLOBIN A1c 5.1 %
[2017-09-16 13:33] LABS: MALB URINE SIEMENS < 5.0 MG/L; MAU/CREAT RATIO 3.5 MCG/MG (0.0-30.0)
[2017-09-24 14:14] LABS: VITAMIN A, RETINOL LEVEL 33.1 ug/dL (31.2-89.1)
[2017-09-24 14:14] LABS: COPPER PLASMA 132 ug/dL (72-166); SELENIUM LEVEL BLOOD 250 ug/L (100-340); VITAMIN B1 LEVEL WHOLE BLOOD 120.6 nmol/L (66.5-200.0); VITAMIN E(ALPHA TOCOPHEROL) 8.5 mg/L (5.9-19.4); VITAMIN E(GAMMA TOCOPHEROL) 0.8 mg/L (0.7-4.9); VITAMIN K1 0.33 ng/mL (0.13-1.88); ZINC PLASMA 61 ug/dL (56-134)
== END ==
LOC: M LAB 11:23
DX: Z98.84 Bariatric surgery status (principal); E11.29 Type 2 diabetes mellitus with other diabetic kidney complication; Z13.220 Encounter for screening for lipoid disorders
CPT/HCPCS: 82525

== ENCOUNTER → 2018-03-26 | Outpatient (CLI) | payer MEDICARE, MEDICAID ==
[~2018-03-26] MED LIST changes: +MONO0.25 PO; +MULT1CHW26 PO; +PRIL20CA9 PO; +ZOFR4TAB14 PO
[2018-03-26 13:05] LABS: HCG, SERUM QUALITATIVE NEGATIVE (NEGATIVE)
== END ==
LOC: M LAB 12:18
PROVIDERS: ATTEND Nurse Practitioner Women's Health
DX: N92.6 Irregular menstruation, unspecified (principal)

== ENCOUNTER → 2018-04-08 | Outpatient (REF) | payer MEDICARE, MEDICAID ==
[2018-04-08 20:17] LABS: INFLUENZA A AMPLIFICATION POSITIVE (NEGATIVE); INFLUENZA B AMPLIFICATION NEGATIVE (NEGATIVE)
== END ==
LOC: M LAB REF 19:25
PROVIDERS: ATTEND Physician Assistant
DX: J11.1 Influenza due to unidentified influenza virus with other respiratory manifestations (principal)

== ENCOUNTER → 2018-07-02 | Outpatient (REF) | payer MEDICARE, MEDICAID | LOC: M SFHCPLAZ 11:17 | PROVIDERS: ATTEND Family Medicine | DX: Z98.84 Bariatric surgery status (principal); Z13.220 Encounter for screening for lipoid disorders; Z53.8 Procedure and treatment not carried out for other reasons ==

== ENCOUNTER → 2018-07-03 | Outpatient (CLI) | payer MEDICARE, MEDICAID ==
[2018-07-03 12:11] LABS: IONIZED CALCIUM 4.5 MG/DL (4.5-5.3)
[2018-07-03 19:51] LABS: CHOLESTEROL LEVEL 157 MG/DL (<200); CHOLESTEROL RISK RATIO 2.661 (<5); HDL CHOLESTEROL 59 MG/DL (>40); IRON (FE) 89 UG/DL (50-170); LDL CHOLESTEROL 81 MG/DL (<100); NON-HDL-C 98 MG/DL; PERCENT SATURATION 25.6 % (13.2-45.0); TOTAL IRON BINDING CAPACITY 348 UG/DL (250-450); TRIGLYCERIDES LEVEL 85 MG/DL (<150)
[2018-07-05 09:24] LABS: FOLATE > 24.0 NG/ML (>5.4); TOTAL 25(OH) VITAMIN D 23.8 NG/ML (30.0-100.0); VITAMIN B12 LEVEL 581 PG/ML (247-911)
[2018-07-10 14:30] LABS: COPPER PLASMA 129 ug/dL (72-166); SELENIUM LEVEL BLOOD 237 ug/L (100-340); VITAMIN A, RETINOL LEVEL 44.8 ug/dL (18.9-57.3); VITAMIN B1 LEVEL WHOLE BLOOD 131.7 nmol/L (66.5-200.0); VITAMIN C, ASCORBIC ACID 0.9 mg/dL (0.2-2.0); VITAMIN E(ALPHA TOCOPHEROL) 7.5 mg/L (5.9-19.4); VITAMIN E(GAMMA TOCOPHEROL) 0.9 mg/L (0.7-4.9); VITAMIN K1 <.13 ng/mL (0.13-1.88); ZINC PLASMA 76 ug/dL (56-134)
== END ==
LOC: M LAB 11:23
PROVIDERS: ATTEND Obstetrics & Gynecology
DX: Z13.220 Encounter for screening for lipoid disorders (principal); Z98.84 Bariatric surgery status

== ENCOUNTER → 2018-09-06 | Outpatient (CLI) | payer MEDICARE, MEDICAID ==
[~2018-09-06] MED LIST changes: +HYDR-3363 PO; +ONDA8TAB10 PO; -ONDA8TAB7 PO; +PRED20TA PO
[2018-09-06 11:50] LABS: ESTRADIOL 76.5 PG/ML; LUTEINIZING HORMONE 11.5 mIU/mL; PROGESTERONE 2.12 NG/ML
== END ==
LOC: M LAB 10:44
PROVIDERS: ATTEND Obstetrics & Gynecology
DX: Z31.69 Encounter for other general counseling and advice on procreation (principal)

== ENCOUNTER → 2018-10-08 | Outpatient (REF) | payer MEDICARE, MEDICAID | LOC: M SMT 11:23 | PROVIDERS: ATTEND Obstetrics & Gynecology | DX: Z01.419 Encounter for gynecological examination (general) (routine) without abnormal findings (principal) | CPT/HCPCS: G0101; G0123 ==

== ENCOUNTER → 2018-10-11 | Outpatient (REF) | payer MEDICARE, MEDICAID ==
[~2018-10-11] MED LIST changes: -HYDR-3363 PO; -ONDA8TAB10 PO; +ONDA8TAB7 PO; -PRED20TA PO
[2018-10-11 14:09] LABS: APPEARANCE, URINE HAZY (CLEAR); BACTERIA, URINE AUTO 3+ (NEGATIVE); BILIRUBIN, URINE AUTO NEGATIVE (NEGATIVE); BLOOD, URINE BLOOD 1+ (NEGATIVE); COLOR, URINE YELLOW (YELLOW); GLUCOSE, URINE (UA) AUTO NEGATIVE (NEGATIVE); KETONE, URINE AUTO NEGATIVE (NEGATIVE); LEUKOCYTE ESTERASE, URINE AUTO 2+ (NEGATIVE); MUCUS, URINE SMALL (NEGATIVE); NITRITE, URINE AUTO NEGATIVE (NEGATIVE); PROTEIN, URINE AUTO NEGATIVE (NEGATIVE); RBC, URINE AUTO 18 /HPF (0-3); SPECIFIC GRAVITY URINE AUTO 1.012 (1.002-1.035); SQUAMOUS EPITHELIAL CELL UR AU 1 /HPF (0-6); UROBILINOGEN, URINE AUTO 0.2 mg/dL (0.0-2.0); WBC, URINE AUTO 57 /HPF (0-3)
== END ==
LOC: M LAB REF 13:13
PROVIDERS: ATTEND Physician Assistant Medical
DX: N39.0 Urinary tract infection, site not specified (principal)

== ENCOUNTER → 2018-10-12 | Outpatient (CLI) | payer MEDICARE, MEDICAID ==
[2018-10-12 12:07] LABS: FREE T4 0.88 NG/DL (0.76-1.46); PROLACTIN 3.9 NG/ML; THYROID STIMULATING HORMONE 1.56 uIU/ML (0.358-3.740)
[2018-10-15 10:07] LABS: 17 HYDROXY PROGESTERONE 350 ng/dL (.); DEHYDROEPIANDROSTERONE SULFATE 298.6 ug/dL (84.8-378.0); TESTOSTERONE FREE (DIRECT) 3.3 pg/mL (0.0-4.2)
== END ==
LOC: M LAB 10:35
PROVIDERS: ATTEND Obstetrics & Gynecology
DX: Z01.419 Encounter for gynecological examination (general) (routine) without abnormal findings (principal); E28.2 Polycystic ovarian syndrome

== ENCOUNTER 2018-12-01 00:28 | Emergency (ER) | payer MEDICARE, MEDICAID ==
[~2018-12-01] VITALS: Ht 154.9 cm; Wt 92.3 kg
[2018-12-01] MEDS ORDERED: hydrOXYzine 50 MG TAB PO STA (01:54)
[2018-12-01] MEDS ORDERED: PRED20TA PO (02:00)
[2018-12-01] MEDS ORDERED: diphenhydrAMINE 25 MG CAP PO ONE (02:00)
[2018-12-01] MEDS ORDERED: HYDR-3363 PO (02:00)
[2018-12-01 02:06] VITALS: BP 130/74
== END 2018-12-01 02:07 | disposition home or self-care (01) ==
LOC: M ED 00:28
DX: L50.9 Urticaria, unspecified (principal); J02.9 Acute pharyngitis, unspecified; E11.9 Type 2 diabetes mellitus without complications; I10 Essential (primary) hypertension; J45.909 Unspecified asthma, uncomplicated; F17.200 Nicotine dependence, unspecified, uncomplicated; Z98.84 Bariatric surgery status

== ENCOUNTER → 2018-12-03 | Outpatient (CLI) | payer MEDICARE, MEDICAID ==
[~2018-12-03] MED LIST changes: +HYDR-3363 PO; +PRED20TA PO
[2018-12-03 12:36] LABS: URINE PREG TEST POSITIVE (NEGATIVE)
== END ==
LOC: M LAB 11:54
PROVIDERS: ATTEND Obstetrics & Gynecology
DX: R11.0 Nausea (principal); Z3A.01 Less than 8 weeks gestation of pregnancy
CPT/HCPCS: 36415; 84702; 84703; G0463

== ENCOUNTER → 2019-01-04 | Outpatient (CLI) | payer MEDICARE, MEDICAID ==
[2019-01-04 17:58] LABS: BASO % 0.4 % (0.0-1.0); EOS # 0.1 10^3/uL (0.0-0.5); EOS % 0.8 % (0.0-3.0); HEMATOCRIT 41.9 % (36.0-47.0); HEMOGLOBIN 13.6 g/dl (12.0-15.5); LYMPH # 2.3 10^3/uL (1.5-5.0); LYMPH % 22.5 % (24.0-44.0); MEAN CORPUSCULAR HEMOGLOBIN 27.5 pg (27.0-33.0); MEAN CORPUSCULAR HGB CONC 32.5 g/dl (32.0-36.5); MEAN CORPUSCULAR VOLUME 84.6 fl (80.0-96.0); MONO # 0.7 10^3/uL (0.0-0.8); MONO % 6.6 % (0.0-5.0); NEUTROPHILS % 69.4 % (36.0-66.0); PLATELET COUNT, AUTOMATED 305 10^3/uL (150-450); RED BLOOD COUNT 4.95 10^6/uL (4.00-5.40)
[2019-01-04 18:21] LABS: HEMOGLOBIN A1c 5.2 %
[2019-01-04 19:24] LABS: CHLAMYDIA DNA AMPLIFICATION NEGATIVE (NEGATIVE); GC DNA AMPLIFICATION NEGATIVE (NEGATIVE)
[2019-01-05 09:55] LABS: HEPATITIS C VIRUS ABY INDEX 0.1 INDEX (<0.8); HIV 1&2 SCREEN CENTAUR NEGATIVE (NEGATIVE); RUBELLA IgG QUALITATIVE IMMUNE (IMMUNE)
== END ==
LOC: M SMT 13:47
PROVIDERS: ATTEND Advanced Practice Midwife
DX: Z34.01 Encounter for supervision of normal first pregnancy, first trimester (principal); Z3A.11 11 weeks gestation of pregnancy; Z79.899 Other long term (current) drug therapy

== ENCOUNTER → 2019-03-02 | Outpatient (CLI) | payer MEDICARE, MEDICAID ==
--- NOTE | 2019-03-02 14:28 | REP ---
OBSTETRIC SONOGRAPHY: HISTORY: Supervision of for anatomy. FINDINGS: Scanning through the gravid uterus demonstrates a viable single intrauterine gestation in a breech lie. motion is observed and heart rate is recorded at 139 beats per minute. A posterior grade 0 placenta is seen without evidence of previa or abruption. Amniotic fluid is subjectively normal. Closed cervical length is measured at 4.1 cm viewed transabdominally. No extrauterine abnormality is observed. No abnormality is observed. The following anatomic structures are less than optimally seen due to position: Nose and lips, four-chamber heart with left ventricular outflow tract view, spine, lower extremities. The following additional anatomic structures are identified and felt to be unremarkable: cranium, choroid plexus, lungs, right ventricular outflow tract view, diaphragm, left-sided stomach, abdominal wall cord insertion, three-vessel cord, kidneys and bladder, upper extremities. Biometry Chart: BPD 4.3 cm = 18 weeks 6 days HC 15.6 cm = 18 weeks 4 days AC 13.5 cm = 19 weeks 0 days FL 2.9 cm = 19 weeks 0 days HL 2.8 cm = 19 weeks 1 day HC/AC ratio normal 1.16 Cephalic index normal 0.76. Estimated weight 266 grams/0 pounds 9 ounces/41st percentile for 19 weeks 1 day. IMPRESSION: Viable single intrauterine gestation 18 weeks 6 days by today's composite sonographic criteria. Expected gestational age estimate based on today's sonography July 28, 2019. anatomic survey is incomplete as above. Electronically Signed by Lee Abbott MD 03/02/2019 04:42 P
== END ==
LOC: M RAD 10:11
PROVIDERS: ATTEND Advanced Practice Midwife
DX: O99.212 Obesity complicating pregnancy, second trimester (principal); Z3A.18 18 weeks gestation of pregnancy

== ENCOUNTER → 2019-03-18 | Outpatient (REF) | payer MEDICARE, MEDICAID ==
[~2019-03-18] MED LIST changes: +ONDA8TAB10 PO; -ONDA8TAB7 PO; +PRENTAB9 PO
== END ==
LOC: M LAB REF 16:00
PROVIDERS: ATTEND Physician Assistant
DX: N90.89 Other specified noninflammatory disorders of vulva and perineum (principal)

== ENCOUNTER → 2019-03-21 | Outpatient (CLI) | payer MEDICARE, MEDICAID ==
--- NOTE | 2019-03-21 16:56 | REP ---
[place] ultrasound for anatomy follow-up: Comparison is 03/02/2019. There is a single intrauterine gestation in a vertex presentation. There is motion and cardiac activity. The heart rate is 142 beats minute. The placenta is posterior. There is no previa or abruptio. The placenta is grade 1. The amniotic fluid volume subjectively is normal. The cervix measures 4.0 cm length. Gestational age by today's ultrasound is 20 weeks 6 days. Gestational age by the first ultrasound is 21 weeks 6 days. Gestational age by LMP is 21 weeks 6 days. The EVELIO is of 07/26/2019. Next line. weight is 410 grams/0 pounds, 14 ounces. This is the 20th percentile for 21 weeks 6 days. On the prior study the cavum septum pellucidum, intracranial posterior fossa, upper lip , four-chamber heart, left ventricular outflow tract, spine and lower extremities were not suboptimally demonstrated because of position. On the study today the cavum septum pellucidum, intracranial posterior fossa, upper lip, spine and lower extremities are optimally demonstrated and are unremarkable. Again suboptimally demonstrated are the four-chamber view of the heart and left ventricular cardiac outflow tract. A followup study dedicated to these structures might be considered. Electronically Signed by James Johnson MD 03/21/2019 04:48 P
== END ==
LOC: M WHC 13:05
PROVIDERS: ATTEND Advanced Practice Midwife
DX: Z36.2 Encounter for other antenatal screening follow-up (principal); O99.842 Bariatric surgery status complicating pregnancy, second trimester; Z3A.21 21 weeks gestation of pregnancy

== ENCOUNTER 2019-03-22 00:38 | Emergency (ER) | payer MEDICARE, MEDICAID ==
[~2019-03-22] VITALS: Ht 154.9 cm; Wt 95.5 kg
[~2019-03-22 00:38] MED LIST changes: -PRENTAB9 PO
[2019-03-22] MEDS ORDERED: PRENTAB9 PO (00:55)
[2019-03-22 02:25] LABS: BASO # 0.1 10^3/uL (0.0-0.2); BASO % 0.5 % (0.0-1.0); EOS # 0.1 10^3/uL (0.0-0.5); EOS % 0.7 % (0.0-3.0); HEMATOCRIT 38.9 % (36.0-47.0); HEMOGLOBIN 12.3 g/dl (12.0-15.5); LYMPH # 2.2 10^3/uL (1.5-5.0); LYMPH % 17.1 % (24.0-44.0); MEAN CORPUSCULAR HEMOGLOBIN 26.8 pg (27.0-33.0); MEAN CORPUSCULAR HGB CONC 31.6 g/dl (32.0-36.5); MEAN CORPUSCULAR VOLUME 84.7 fl (80.0-96.0); MONO # 0.9 10^3/uL (0.0-0.8); MONO % 6.6 % (0.0-5.0); NEUTROPHILS # 9.7 10^3/uL (1.5-8.5); NEUTROPHILS % 74.6 % (36.0-66.0); PLATELET COUNT, AUTOMATED 255 10^3/uL (150-450); RED BLOOD COUNT 4.59 10^6/uL (4.00-5.40)
[2019-03-22 03:12] LABS: BLOOD UREA NITROGEN 5 MG/DL (7-18); CARBON DIOXIDE LEVEL 25 MEQ/L (21-32); CHLORIDE LEVEL 112 MEQ/L (98-107); CREATININE FOR GFR 0.51 MG/DL (0.55-1.30); GLOMERULAR FILTRATION RATE > 60.0 (>60); GLUCOSE, FASTING 79 MG/DL (70-100); POTASSIUM SERUM 4.4 MEQ/L (3.5-5.1); SODIUM LEVEL 142 MEQ/L (136-145)
[2019-03-22] MEDS ORDERED: NS 500 ML IV ONE (04:15)
--- NOTE | 2019-03-22 05:38 | REPVR ---
PROCEDURE INFORMATION: Exam: US , Limited Exam date and time: 03/22/2019 4:28 AM Age: 33 years old Clinical indication: Pain; Other: Passed out, cramping now gone; Gestational age or lmp: 22wks; ; Additional info: Sync episode TECHNIQUE: Imaging protocol: Real-time ultrasound of the maternal uterus with image documentation. Exam focused on the clinical indication. COMPARISON: US OBS FOLLOW UP OR REPEAT 03/21/2019 1:17 PM FINDINGS: GESTATION: Gestation: Single live intrauterine gestation is seen. Heart rate: heart rate is detected at 152 beats per minutes. Presentation: Vertex presentation is noted. Placenta: Posterior placenta is noted with no evidence of placenta previa. There is no obvious retroplacental hemorrhage or abruption. Amniotic fluid: The amniotic fluid index is within normal limits 12 cm. MATERNAL: Cervix: The cervix is normal length measuring 4.7 cm in diameter. The endocervical canal is closed. IMPRESSION: 1. Single live IUP with posterior placenta and vertex presentation. 2. Normal amniotic fluid index noted. Electronically signed by: Lee Farnsworth On 03/22/2019 05:37:39 AM
[2019-03-22 06:12] VITALS: BP 102/62
--- NOTE | 2019-03-22 07:57 | ECGEPIP ---
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
== END 2019-03-22 06:14 | disposition home or self-care (01) ==
LOC: M ED 00:38
DX: O99.210 Obesity complicating pregnancy, unspecified trimester (principal); O99.283 Endocrine, nutritional and metabolic diseases complicating pregnancy, third trimester; E86.0 Dehydration; Z98.84 Bariatric surgery status; Z87.891 Personal history of nicotine dependence; Z3A.22 22 weeks gestation of pregnancy

== ENCOUNTER → 2019-05-02 | Outpatient (REF) | payer MEDICARE, MEDICAID ==
[~2019-05-02] MED LIST changes: +PRENTAB9 PO
[2019-05-02 15:30] LABS: HEMATOCRIT 34.8 % (36.0-47.0); HEMOGLOBIN 11.6 g/dl (12.0-15.5); MEAN CORPUSCULAR HEMOGLOBIN 27.8 pg (27.0-33.0); MEAN CORPUSCULAR HGB CONC 33.3 g/dl (32.0-36.5); MEAN CORPUSCULAR VOLUME 83.5 fl (80.0-96.0); PLATELET COUNT, AUTOMATED 260 10^3/uL (150-450); RED BLOOD COUNT 4.17 10^6/uL (4.00-5.40); WHITE BLOOD COUNT 10.2 10^3/uL (4.0-10.0)
[2019-05-02 15:48] LABS: CALCIUM LEVEL 8.5 MG/DL (8.5-10.1)
[2019-05-02 16:05] LABS: FOLATE 22.2 NG/ML (>5.4)
== END ==
LOC: M PLALAB 13:17
PROVIDERS: ATTEND Advanced Practice Midwife
DX: O99.842 Bariatric surgery status complicating pregnancy, second trimester (principal)

== ENCOUNTER → 2019-05-02 | Outpatient (CLI) | payer MEDICARE, MEDICAID ==
--- NOTE | 2019-05-02 16:24 | REP ---
Record ultrasound for anatomy follow-up: On a prior study of 03/02/2019 the cavum septum pellucidum, posterior fossa, upper lip, four-chamber view of the heart, left ventricular outflow tract, spine and lower extremities were suboptimally demonstrated. A prior study of 03/21/2019 the cavum septum pellucidum, posterior fossa, upper lip, spine and lower extremities were satisfactorily demonstrated and unremarkable. On the study today the four-chamber view of the heart and the cardiac left ventricular outflow tract are satisfactorily demonstrated and are unremarkable. The remainder of the anatomy has been satisfactorily demonstrated on the prior studies. No anomalies are identified. There is a single intrauterine gestation in a vertex presentation. There is cardiac activity. The heart rate is 146 beats per minute. The amniotic fluid volume subjectively is normal. Amniotic fluid index is 16.1 (9.4 - 22.8). Cervix measures 3.1 cm. Gestational age by today's ultrasound is 27 weeks 2 days/EVELIO 07/30/2019. Gestational age by the first ultrasound is 27 weeks 6 days/EVELIO 07/26/2019. Gestational age by LMP is 27 weeks 6 days/EVELIO 07/26/2019. weight is 1097 grams/2 pounds, 6 ounces. This is the 35th percentile for 27 weeks 6 days. Electronically Signed by James Johnson MD 05/02/2019 04:15 P
== END ==
LOC: M WHC 13:35
PROVIDERS: ATTEND Advanced Practice Midwife
DX: O99.842 Bariatric surgery status complicating pregnancy, second trimester (principal); Z3A.27 27 weeks gestation of pregnancy

== ENCOUNTER → 2019-06-06 | Outpatient (CLI) | payer MEDICARE, MEDICAID ==
--- NOTE | 2019-06-06 17:35 | REP ---
OB ULTRASOUND: Real-time sonographic evaluation of the gravid uterus is performed. There is a single living intrauterine gestation with the estimated gestational age is 32 weeks 6 days, EDC 07/26/2019. Today's measurements indicate appropriate growth. Biometry and Growth: BPD 80 mm = 32 weeks 0 days, 39th percentile HC 294 mm = 32 weeks 3 days, 44th percentile AC 287 mm = 32 weeks 5 days, 49th percentile FL 61 mm = 31 weeks 6 days, 35th percentile HC/AC ratio 1.02 within normal range of 0.95 to 1.14. Estimated weight 1960 grams, 36th percentile. Cervical length: Cervix is closed and measures 3 cm in length. heart rate: 156 beats per minute. position: Vertex. Placenta: Fundal and grade 0 with no previa or abruption. Amniotic fluid: Within normal limits, RODDY 11.0, normal range 8.4 to 24.4.
== END ==
LOC: M WHC 14:34
PROVIDERS: ATTEND Advanced Practice Midwife
DX: O99.843 Bariatric surgery status complicating pregnancy, third trimester (principal); Z3A.32 32 weeks gestation of pregnancy

== ENCOUNTER → 2019-07-04 | Outpatient (REF) | payer MEDICARE, MEDICAID | LOC: M SFHCWAGY 17:11 | PROVIDERS: ATTEND Advanced Practice Midwife | DX: O99.843 Bariatric surgery status complicating pregnancy, third trimester (principal) | CPT/HCPCS: 87081; G0463 ==

== ENCOUNTER 2019-08-01 12:38 | Inpatient (IN) | payer MEDICARE, MEDICAID ==
[2019-08-01] VITALS (12 sets, daily range): BP systolic 117–141; BP diastolic 64–90
[~2019-08-01] VITALS: Ht 154.9 cm; Wt 106.6 kg
[2019-08-01] MEDS ORDERED: miSOPROStol 50 MCG 1/2 TAB (S0191) PO SCH (13:00)
[2019-08-01] MEDS ORDERED: CETI5SOL3 PO (13:31)
[2019-08-01 15:03] LABS: HEMATOCRIT 33.4 % (36.0-47.0); HEMOGLOBIN 10.2 g/dl (12.0-15.5); MEAN CORPUSCULAR HEMOGLOBIN 24.3 pg (27.0-33.0); MEAN CORPUSCULAR HGB CONC 30.5 g/dl (32.0-36.5); MEAN CORPUSCULAR VOLUME 79.7 fl (80.0-96.0); PLATELET COUNT, AUTOMATED 274 10^3/uL (150-450); RED BLOOD COUNT 4.19 10^6/uL (4.00-5.40)
--- NOTE | 2019-08-01 16:14 | HPEPDOC ---
Obstetrical History & Physical General Date of Admission Aug 01, 2019 at 12:38 Primary Care Physician: OLIVIER BRUNER CNM History of Present Illness Patient is a 33-year-old female who is a at 40.6 weeks gestation with an EVELIO of 07/26/19 based on her LMP and consistent with her first trimester ultrasound. Her has been complicated by a history of gastric bypass. She has a history of seizures that resolved after she lost weight from bariatric surgery. She presents to L&D for induction of labor due to being 40+ weeks gestation. She reports irregular contractions and active movement. She denies leaking of fluid or vaginal bleeding. 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: Human papillomavirus(HPV) Past Medical History Medical History History of Type II diabetes and seizures: both resolved once she lost weight from gastric bypass Deaf in left ear Surgical History: Other (gastric bypass and dental surgery) Family History Significant Family History: Cancer (colon), Diabetes, Heart disease, Hypertension Social History Marital Status: Single Family situation: Spouse/partner home Psychosocial History: No pertinent psych hx * Smoker: former Smoker Alcohol: Denies Drugs: denies Abuse Violence Screening Have you been hit/kicked/slapp: No Have you been sexually assault: No Imunizations Tdap status: current Allergies Coded Allergies: SEASONAL ALLERGIES (Verified Allergy, Mild, 08/01/19) No Known Drug Allergies (Verified Allergy, Unknown, 08/01/19) latex (Verified Adverse Reaction, Mild, HIVES FROM LATEX GLOVES, 08/01/19) SENSITIVITY Medications Scheduled Cetirizine Hcl (Cetirizine HCl) 1 Mg/1 Ml Solution, 10 ML PO DAILY for allergy symptoms No.137/Iron/Folic Acd ( Vitamin Tablet) 1 Each Tablet, 1 TAB PO DAILY Physical Examination Physical Examination GENERAL: Alert and oriented times three. BREAST: . ABDOMEN: Gravid and non-tender to touch. FETUS: Is vertex (VTX) by sterile vaginal examination (SVE), fetus is vertex (VTX) by Renzo. HEART RATE: Regular rate and rhythm. LUNGS: Clear to auscultation (CTA). EXTREMITIES: Generalized edema. No clonus. Deep tendon reflexes (DTRs) + 2. Vital Signs/I&O Vital Signs Date Time Temp Pulse Resp B/P (MAP) Pulse Ox O2 Delivery O2 Flow Rate FiO2 08/01/19 13:26 97.2 74 18 123/79 (94) Laboratory Data 24H LABS Laboratory Tests 2 08/01/19 12:51: Serology Scanned Report Hepatitis B Testing 08/01/19 14:45: Nucleated Red Blood Cells % (auto) 0.0, Syphilis Serology NONREACTIVE CBC/BMP Laboratory Tests 08/01/19 14:45 Urine Culture: No Growth Pertinent Laboratoy Data Blood Type: O+ RBC Antibody Screen: Negative HIV: Negative Hepatitis B: Negative Hepatitis C: Negative Rapid Plasma Reagin: Nonreactive Rubella: Immune Chlamydia/Gonorrhea: Negative Group B Streptococcus: Negative Vaginal Examination Dilation: 1cm Effacement: other (75%) Station: -2 Cervical Consistency: Soft Cervical Position: Anterior Presentation: Cephalic presentation Position: Vertex (occiput) Assessment Heart Rate (FHR): 150 Variability: Moderate Accelerations: Positive Decelerations: None Tocometer Contractions: Yes Frequency: irregular Assessment/Plan Assessment IUP at 40.6 weeks gestation Category I FHR tracing GBS negative induction of labor Plan Admit to L&D. OOB ad david. Diet: regular now then clears when switched to IV Pitocin. Group B Streptococcus (GBS) negative. Labs and intravenous (IV) per unit protocol. Counseled on Cytotec, anthony bulb and Pitocin for induction of labor (IOL). Lactated Ringers (LR): Bolus 800 mL prior to epidural, then at 125 mL/hr. Anticipate cervical ripening. C-S as appropriate. OLIVIER BRUNER CNM Aug 01, 2019 16:14
[2019-08-01] MEDS ORDERED: LR 1,000 ML IV ONE ×2 (17:00)
[2019-08-01 19:36] LABS: ALT/SGPT 12 U/L (12-78); BILIRUBIN,TOTAL 0.3 MG/DL (0.2-1.0); CREATININE FOR GFR 0.74 MG/DL (0.55-1.30); GLOMERULAR FILTRATION RATE > 60.0 (>60); LDH LACTATE DEHYDROGENASE 194 U/L (84-246); URIC ACID 5.6 MG/DL (2.6-6.0)
[2019-08-01] MEDS ORDERED: LR 1,000 ML IV SCH (21:25)
[2019-08-01] MEDS ORDERED: BUTORPHANOL 2 MG/ML INJ (J0595) IV ONE (21:30)
[2019-08-01] MEDS ORDERED: OXYTOCIN DRIP 30 UNITS in IV 1 EA IV SCH (21:30)
[2019-08-01] MEDS ORDERED: PROMETHAZINE INJ 25 MG/ML VIAL (J2550) IV ONE (21:30)
--- NOTE | 2019-08-01 21:30 | IPNPDOC ---
Obstetrical Progress Note Date of Service Aug 01, 2019 Subjective Patient reports she feels her contractions. Objective Vital Signs Date Time Temp Pulse Resp B/P (MAP) Pulse Ox O2 Delivery O2 Flow Rate FiO2 08/01/19 18:10 97.5 77 18 141/90 (107) Assessment Heart Rate (FHR): 150 Variability: Moderate Accelerations: Positive Decelerations: None Heart Rate Tracing: Category I Tocometer Contractions: Yes Frequency: regular, other (3-5 minutes) Sterile Vaginal Examination Dilation: 1cm Effacement (%): other (75%) Station: -2 Cervical Consistency: Soft Cervical Position: Anterior Postion/Presentation: Cephalic presentation Assessment and Plan Age: 33 : 1 Term: 0 Pre-term: 0 Abortions: 0 Livin EGA at Admission: 40.6 Status: Reassuring Group B Streptococcus: Negative Anticipate: Vaginal Delivery Additional Comments Campoverde bulb placed with 60/40 cc. Patient tolerated well. IV Pitocin ordered and to be started. IV pain medication ordered. Preeclamptic labs ordered. OLIVIER BRUNER CNM Aug 01, 2019 21:30
[2019-08-02] VITALS (32 sets, daily range): BP systolic 109–142; BP diastolic 57–93
[2019-08-02] MEDS ORDERED: FENTANYL 2MCG/ML ROPIVACAINE 0.2% IN 0.9% NACL 100ML IVBAG As Ordered ONE (03:18)
[2019-08-02] MEDS: FENTANYL/ROPIVACAINE/NACL BAG 100 ML EPIDURAL SCH ×2 (04:15→11:48)
[2019-08-02] MEDS ORDERED: REFRIGERATOR IV KEYS XX PRN (04:45)
[2019-08-02] MEDS ORDERED: ePHEDrine SULFATE 25 MG/5 ML(5MG/ML) SYRINGE IV PRN (04:45)
[2019-08-02] MEDS ORDERED: NALOXONE INJ 0.4MG/1ML VIAL (J2310 PER 1MG) IV PRN ×3 (04:45→14:50)
[2019-08-02] MEDS ORDERED: LACTATED RINGER'S 1000 ML IV PRN (04:45)
[2019-08-02] MEDS ORDERED: EPIDURAL COMMENT XX SCH (04:45)
[2019-08-02] MEDS ORDERED: diphenhydrAMINE 50MG/ML VIAL (J1200) IV PRN (04:45)
[2019-08-02] MEDS ORDERED: ONDANSETRON 4MG/2ML VIAL IV PRN ×3 (04:45→15:30)
[2019-08-02] MEDS ORDERED: EPIDURAL/PCA KEYS XX PRN (04:45)
[2019-08-02] MEDS ORDERED: BICITRA 30ML SOLN UDC PO ONE (14:00)
[2019-08-02] MEDS ORDERED: ceFAZolin SOD 2 GM in IV 1 EA IV ONE (14:00)
[2019-08-02] MEDS ORDERED: AZITHROMYCIN INJ 500 MG, VIAL MATE ADAPTER 1 EACH in D5W 250 ML IV ONE (14:00)
[2019-08-02] MEDS ORDERED: OXYTOCIN INJ 10 UNITS/ML VIAL (J2590) As Ordered ONE (14:38)
[2019-08-02] MEDS ORDERED: ONDANSETRON 4MG/2ML VIAL As Ordered ONE (14:38)
[2019-08-02] MEDS ORDERED: LIDOCAINE 2% W/EPIN INJ 20ML **PRES FREE As Ordered ONE (14:38)
[2019-08-02] MEDS ORDERED: MORPHINE PRES-FREE INJ 10 MG/10 ML VIAL (J2274) As Ordered ONE (14:38)
[2019-08-02] MEDS ORDERED: KETOROLAC 60MG 2ML VIAL As Ordered ONE (14:39)
[2019-08-02] MEDS ORDERED: NALBUPHINE HCL 10 MG/ML AMP (J2300) IV PRN (14:50)
[2019-08-02] MEDS ORDERED: METOCLOPRAMIDE INJ 10MG/2ML VIAL (J2765 PER 1) IV PRN (14:50)
[2019-08-02] MEDS ORDERED: ACETAMINOPHEN 1000MG 100ML IV BTL (OFIRMEV) (J0131 PER 10MG) As Ordered ONE (14:53)
[2019-08-02] MEDS ORDERED: LR 1,000 ML IV SCH ×2 (15:21→15:45)
[2019-08-02] MEDS ORDERED: OXYTOCIN DRIP 30 UNITS in IV 1 EA IV SCH (15:21)
[2019-08-02] MEDS ORDERED: RHOGAM 300 MCG (1500 IU) INJ (J2790) IM SCH (15:30)
[2019-08-02] MEDS ORDERED: oxyCODONE 5MG TAB PO PRN ×2 (15:30→15:45)
[2019-08-02] MEDS ORDERED: MEASLES,MUMPS,RUBELLA VACCINE INJ (MMR-II) (90707) SC SCH (15:30)
[2019-08-02] MEDS ORDERED: DOCUSATE SODIUM 100 MG CAP PO PRN (15:30)
[2019-08-02] MEDS ORDERED: fentaNYL 100 MCG/2 ML INJECTION (J3010) IV PRN (15:45)
[2019-08-02] MEDS: diphenhydrAMINE 50MG/ML VIAL (J1200) IV PRN (19:38)
[2019-08-02] MEDS ORDERED: KETOROLAC 30 MG/ML 1ML VIAL IV SCH (21:00)
[2019-08-02] MEDS: PERCOCET 5MG/325MG TAB PO PRN (23:01)
[2019-08-03 02:00] VITALS: BP 118/78
[2019-08-03] MEDS: diphenhydrAMINE 50MG/ML VIAL (J1200) IV PRN (04:45)
[2019-08-03 06:00] VITALS: BP 107/69
[2019-08-03] MEDS: PERCOCET 5MG/325MG TAB PO PRN ×2 (06:27→19:58)
[2019-08-03] MEDS ORDERED: OXYC1TAB23 PO (07:15)
[2019-08-03] MEDS: PRENATAL VITAMINS CHEWABLE TABLET PO SCH (08:36)
[2019-08-03 08:42] LABS: HEMATOCRIT 28.6 % (36.0-47.0); HEMOGLOBIN 9.1 g/dl (12.0-15.5); MEAN CORPUSCULAR HEMOGLOBIN 24.9 pg (27.0-33.0); MEAN CORPUSCULAR HGB CONC 31.8 g/dl (32.0-36.5); MEAN CORPUSCULAR VOLUME 78.4 fl (80.0-96.0); PLATELET COUNT, AUTOMATED 235 10^3/uL (150-450); RED BLOOD COUNT 3.65 10^6/uL (4.00-5.40)
[2019-08-03 10:00] VITALS: BP 127/82
[2019-08-03] MEDS ORDERED: IBUPROFEN 800 MG TAB PO SCH (17:00)
[2019-08-03 18:00] VITALS: BP 118/76
[2019-08-03 22:41] VITALS: BP 115/70
[2019-08-04] MEDS: PERCOCET 5MG/325MG TAB PO PRN ×3 (00:52→13:46)
[2019-08-04 05:42] VITALS: BP 115/78
[2019-08-04] MEDS: PRENATAL VITAMINS CHEWABLE TABLET PO SCH (09:18)
--- NOTE | 2019-08-05 14:11 | RO ---
DATE OF PROCEDURE: 08/02/2019 PREDELIVERY DIAGNOSIS: 41 weeks, arrest of dilation. POSTOPERATIVE DIAGNOSIS: 41 weeks, arrest of dilation. PROCEDURE: Primary low transverse section. SURGEON: Manav Carreno MD FUEL MANAGER: Purvi Salinas DO ANESTHESIA: Epidural. ESTIMATED BLOOD LOSS: 600 mL. URINE OUTPUT: 100 mL. FLUID: 1000 mL lactated Ringer's (LR). FINDINGS: 8 pound 1 ounce (3650 gram) female infant, score 9 and 9. Nuchal cord times two. OPERATIVE SUMMARY: The patient was taken to the operating room where epidural anesthesia was found to be adequate. Campoverde catheter was already in place. She was prepped and draped in sterile fashion in the supine position. A Pfannenstiel skin incision was made with the scalpel and carried through to the underlying fascia. The fascia was nicked and extended. The fascia was dissected off the rectus muscles. The peritoneal cavity was entered sharply. A Mobius retractor was placed. A bladder flap was created. A curvilinear incision was made in the lower uterine segment until clear fluid was noted. This was extended manually. The infant was delivered from the vertex position without difficulty. Nuchal cord times two was reduced manually. The shoulders delivered with ease. The cord was doubly clamped and cut. The was handed off to the awaiting nurses. The placenta was expressed. The uterus was cleared of clots and debris. The uterine incision was closed with #0 Vicryl in a running locked fashion. A second imbricating layer of #0 Vicryl was placed. The Mobius retractor was removed. The peritoneum was closed with #2-0 Vicryl in a running fashion. The fascia was closed with #0 Vicryl in a running fashion. The deep layer was irrigated and closed with #3-0 chromic. The skin was closed with #4-0 Monocryl subcuticular sutures. Sponge, instrument, and needle counts were correct.
== END 2019-08-04 16:20 | disposition home or self-care (01) | DRG 788 ==
LOC: M LDI 12:38 → M OBS 08-02 16:50
PROVIDERS: ADMIT Advanced Practice Midwife; ATTEND Specialist
PROC: 3E0P7GC Introduction of Other Therapeutic Substance into Female Reproductive, Via Natural or Artificial Opening (ICD-10-PCS; 2019-08-01)
PROC: 10D00Z1 Extraction of Products of Conception, Low, Open Approach (ICD-10-PCS; principal; 2019-08-02 14:46)
DX: O48.0 Post-term pregnancy (principal); Z3A.40 40 weeks gestation of pregnancy; O62.0 Primary inadequate contractions; O69.81X0 Labor and delivery complicated by cord around neck, without compression, not applicable or unspecified; Z37.0 Single live birth

== ENCOUNTER → 2019-10-03 | Outpatient (REF) | payer MEDICARE, MEDICAID ==
[~2019-10-03] MED LIST changes: +CETI5SOL3 PO; +OXYC1TAB23 PO
== END ==
LOC: M LAB REF 09:37
PROVIDERS: ATTEND Physician Assistant Medical
DX: J02.9 Acute pharyngitis, unspecified (principal)

== ENCOUNTER → 2020-02-15 | Outpatient (CLI) | payer MEDICARE, MEDICAID | LOC: M LABSMTC 13:26 | PROVIDERS: ATTEND Family Medicine | DX: Z20.828 Contact with and (suspected) exposure to other viral communicable diseases (principal) ==

== ENCOUNTER → 2020-02-21 | Outpatient (CLI) | payer MEDICARE, MEDICAID | LOC: M LABSMTC 12:03 | PROVIDERS: ATTEND Family Medicine | DX: Z20.828 Contact with and (suspected) exposure to other viral communicable diseases (principal) ==

== ENCOUNTER → 2020-06-27 | Outpatient (CLI) | payer MEDICARE, MEDICAID ==
[2020-06-27 12:42] LABS: BASO # 0.1 10^3/uL (0.0-0.2); EOS # 0.2 10^3/uL (0.0-0.5); EOS % 3.5 % (0.0-3.0); HEMATOCRIT 35.5 % (36.0-47.0); HEMOGLOBIN 10.1 g/dl (12.0-15.5); LYMPH # 1.6 10^3/uL (1.5-5.0); LYMPH % 27.3 % (24.0-44.0); MEAN CORPUSCULAR HEMOGLOBIN 20.8 pg (27.0-33.0); MEAN CORPUSCULAR HGB CONC 28.5 g/dl (32.0-36.5); MEAN CORPUSCULAR VOLUME 73.2 fl (80.0-96.0); MONO # 0.6 10^3/uL (0.0-0.8); MONO % 10.5 % (2.0-8.0); NEUTROPHILS # 3.3 10^3/uL (1.5-8.5); NEUTROPHILS % 57.2 % (36.0-66.0); PLATELET COUNT, AUTOMATED 448 10^3/uL (150-450); RED BLOOD COUNT 4.85 10^6/uL (4.00-5.40); WHITE BLOOD COUNT 5.7 10^3/uL (4.0-10.0)
[2020-06-27 13:01] LABS: HEMOGLOBIN A1c 5.6 %
[2020-06-27 13:34] LABS: ALBUMIN 3.6 GM/DL (3.2-5.2); ALT/SGPT 13 U/L (12-78); BILIRUBIN,TOTAL 0.2 MG/DL (0.2-1.0); BLOOD UREA NITROGEN 7 MG/DL (7-18); CARBON DIOXIDE LEVEL 26 MEQ/L (21-32); CHLORIDE LEVEL 109 MEQ/L (98-107); CREATININE FOR GFR 0.69 MG/DL (0.55-1.30); FERRITIN 4 NG/ML (8-252); FOLATE > 24.0 NG/ML; GLOMERULAR FILTRATION RATE > 60.0 (>60); GLUCOSE, FASTING 79 MG/DL (70-100); IRON (FE) 17 UG/DL (50-170); MAGNESIUM LEVEL 2.2 MG/DL (1.8-2.4); PERCENT SATURATION 4.1 % (13.2-45.0); PHOSPHORUS LEVEL 3.3 MG/DL (2.5-4.9); POTASSIUM SERUM 4.4 MEQ/L (3.5-5.1); SODIUM LEVEL 140 MEQ/L (136-145); TOTAL IRON BINDING CAPACITY 415 UG/DL (250-450); TOTAL PROTEIN 7.3 GM/DL (6.4-8.2); VITAMIN B12 LEVEL 445 PG/ML
== END ==
LOC: M LAB 11:14
PROVIDERS: ATTEND Student in an Organized Health Care Education/Training Program
DX: R20.2 Paresthesia of skin (principal); Z98.84 Bariatric surgery status; Z79.899 Other long term (current) drug therapy

== ENCOUNTER → 2020-07-17 | Outpatient (REF) | payer MEDICARE, MEDICAID | LOC: M SFHCPLAZ 11:38 | PROVIDERS: ATTEND Family Medicine | DX: R74.8 Abnormal levels of other serum enzymes (principal) ==

== ENCOUNTER → 2020-08-13 | Outpatient (CLI) | payer MEDICARE, MEDICAID | LOC: M LAB 10:40 | PROVIDERS: ATTEND Student in an Organized Health Care Education/Training Program | DX: R74.8 Abnormal levels of other serum enzymes (principal) ==

== ENCOUNTER → 2021-01-07 | Outpatient (CLI) | payer MEDICARE, MEDICAID ==
--- NOTE | 2021-01-07 11:16 | REP ---
INDICATION: PAIN IN RIGHT HIP. COMPARISON: None. TECHNIQUE: Frontal view of the pelvis with neutral and frog-lateral views of the right and left hip. FINDINGS: Osseous structures are intact and there is no evidence for acute fracture or dislocation. The bilateral hip joints are symmetric and essentially age-appropriate. No overt osteoarthritic degenerative changes are appreciated. No osteophytosis. No periarticular calcifications or loose bodies are identified. Surrounding soft tissues are normal. IMPRESSION: Symmetric relatively age-appropriate bilateral hip radiographs. <Electronically signed by Moises Valdivia > 01/07/21 [id number]
[2021-01-07 11:49] LABS: BASO # 0.1 10^3/uL (0.0-0.2); BASO % 0.7 % (0.0-1.0); EOS # 0.2 10^3/uL (0.0-0.5); EOS % 2.6 % (0.0-3.0); HEMATOCRIT 36.5 % (36.0-47.0); HEMATOCRIT 36.7 % (36.0-47.0); HEMOGLOBIN 10.5 g/dl (12.0-15.5); LYMPH # 2.4 10^3/uL (1.5-5.0); LYMPH % 29.5 % (24.0-44.0); MEAN CORPUSCULAR HEMOGLOBIN 20.8 pg (27.0-33.0); MEAN CORPUSCULAR HGB CONC 28.8 g/dl (32.0-36.5); MEAN CORPUSCULAR VOLUME 72.4 fl (80.0-96.0); MONO # 0.6 10^3/uL (0.0-0.8); MONO % 7.8 % (2.0-8.0); NEUTROPHILS # 4.9 10^3/uL (1.5-8.5); PLATELET COUNT, AUTOMATED 435 10^3/uL (150-450); RED BLOOD COUNT 5.04 10^6/uL (4.00-5.40); WHITE BLOOD COUNT 8.2 10^3/uL (4.0-10.0)
[2021-01-07 12:20] LABS: PERCENT SATURATION 4.8 % (13.2-45.0)
[2021-01-07 12:23] LABS: TOTAL 25(OH) VITAMIN D 17.3 NG/ML (30.0-100.0)
== END ==
LOC: M LAB 10:25
PROVIDERS: ATTEND Student in an Organized Health Care Education/Training Program
DX: M25.551 Pain in right hip (principal); D50.0 Iron deficiency anemia secondary to blood loss (chronic)

== ENCOUNTER → 2021-03-25 | Outpatient (CLI) | payer MEDICARE, MEDICAID ==
[~2021-03-25] MED LIST changes: +ONDA-84 PO; -ONDA8TAB10 PO
== END ==
LOC: M RAD 11:13
PROVIDERS: ATTEND Student in an Organized Health Care Education/Training Program
DX: S99.921A Unspecified injury of right foot, initial encounter (principal); X58.XXXA Exposure to other specified factors, initial encounter; Y92.9 Unspecified place or not applicable; Y99.9 Unspecified external cause status

== ENCOUNTER → 2022-06-26 | Outpatient (REF) | payer MEDICARE, MEDICAID | LOC: M SFHCPLAZ 15:04 | PROVIDERS: ATTEND Family Medicine | DX: D50.8 Other iron deficiency anemias (principal); E11.69 Type 2 diabetes mellitus with other specified complication; E66.9 Obesity, unspecified; D50.0 Iron deficiency anemia secondary to blood loss (chronic) ==

== ENCOUNTER → 2022-07-01 | Outpatient (CLI) | payer MEDICARE, MEDICAID ==
[2022-07-01 11:54] LABS: FOLLICLE STIMULATING HORMONE 8.2 mIU/ML; FREE T4 0.89 NG/DL (0.89-1.76); THYROID STIMULATING HORMONE 1.148 uIU/ML (0.55-4.78)
[2022-07-01 11:55] LABS: LUTEINIZING HORMONE 6.2 mIU/ML; TOTAL 25(OH) VITAMIN D 12.5 NG/ML (20.0-100.0)
== END ==
LOC: M LAB 09:38
PROVIDERS: ATTEND Student in an Organized Health Care Education/Training Program
DX: Z98.84 Bariatric surgery status (principal); L65.9 Nonscarring hair loss, unspecified

== ENCOUNTER → 2022-09-25 | Outpatient (CLI) | payer MEDICARE, MEDICAID ==
[2022-09-25 10:24] LABS: HEMATOCRIT 39.1 % (36.0-47.0); MEAN CORPUSCULAR HEMOGLOBIN 24.2 pg (27.0-33.0); MEAN CORPUSCULAR HGB CONC 30.7 g/dl (32.0-36.5); PLATELET COUNT, AUTOMATED 325 10^3/uL (150-450); RED BLOOD COUNT 4.95 10^6/uL (4.00-5.40); WHITE BLOOD COUNT 6.9 10^3/uL (4.0-10.0)
[2022-09-25 10:54] LABS: CREATININE, URINE 218.4 MG/DL
[2022-09-25 10:55] LABS: TOTAL IRON BINDING CAPACITY 363 UG/DL (250-425)
[2022-09-25 10:55] LABS: MALB URINE SIEMENS < 3.0 MG/L; MAU/CREAT RATIO 1.3 MCG/MG (0.0-30.0)
[2022-09-25 10:56] LABS: IRON (FE) 65 UG/DL (50-170); PERCENT SATURATION 17.9 % (13.2-45.0)
[2022-09-25 10:59] LABS: ALBUMIN 3.5 G/DL (3.2-5.2); ALKALINE PHOSPHATASE 101 U/L (46-116); ALT/SGPT 15 U/L (7.0-40); AST/SGOT 10 U/L (<34); BILIRUBIN,TOTAL 0.5 MG/DL (0.3-1.2); BLOOD UREA NITROGEN 6 MG/DL (9-23); CALCIUM LEVEL 8.5 MG/DL (8.5-10.1); CARBON DIOXIDE LEVEL 27 MMOL/L (20-31); CHLORIDE LEVEL 106 MMOL/L (98-107); CHOLESTEROL LEVEL 153 MG/DL (<200); CHOLESTEROL RISK RATIO 2.68 (<5); CREATININE FOR GFR 0.68 MG/DL (0.55-1.30); FERRITIN 11.4 NG/ML (7.3-270.7); FOLATE 15.21 NG/ML (>5.4); GLOMERULAR FILTRATION RATE > 60.0 (>60); GLUCOSE, FASTING 89 MG/DL (60-100); LDL CHOLESTEROL 77.2 MG/DL (<100); MAGNESIUM LEVEL 1.7 MG/DL (1.8-2.4); POTASSIUM SERUM 4.2 MMOL/L (3.5-5.1); SODIUM LEVEL 137 MMOL/L (136-145); TOTAL PROTEIN 6.7 G/DL (5.7-8.2); TRIGLYCERIDES LEVEL 94 MG/DL (<150)
[2022-09-25 11:09] LABS: HEMOGLOBIN A1c 5.6 % (4.0-6.0)
== END ==
LOC: M LAB 09:34
PROVIDERS: ATTEND Student in an Organized Health Care Education/Training Program
DX: D50.0 Iron deficiency anemia secondary to blood loss (chronic) (principal); E11.69 Type 2 diabetes mellitus with other specified complication; E66.9 Obesity, unspecified; Z98.84 Bariatric surgery status

== ENCOUNTER → 2022-11-19 | Outpatient (CLI) | payer MEDICARE, MEDICAID ==
[2022-11-19 17:57] LABS: BASO # 0.1 10^3/uL (0.0-0.2); BASO % 0.6 % (0.0-1.0); EOS # 0.2 10^3/uL (0.0-0.5); EOS % 2.7 % (0.0-3.0); HEMATOCRIT 41.2 % (36.0-47.0); HEMOGLOBIN 12.6 g/dl (12.0-15.5); LYMPH # 2.8 10^3/uL (1.5-5.0); LYMPH % 35.6 % (24.0-44.0); MEAN CORPUSCULAR HEMOGLOBIN 24.9 pg (27.0-33.0); MEAN CORPUSCULAR HGB CONC 30.6 g/dl (32.0-36.5); MEAN CORPUSCULAR VOLUME 81.3 fl (80.0-96.0); MONO # 0.6 10^3/uL (0.0-0.8); NEUTROPHILS # 4.1 10^3/uL (1.5-8.5); PLATELET COUNT, AUTOMATED 330 10^3/uL (150-450); RED BLOOD COUNT 5.07 10^6/uL (4.00-5.40); WHITE BLOOD COUNT 7.7 10^3/uL (4.0-10.0)
[2022-11-19 18:19] LABS: ALBUMIN 3.6 G/DL (3.2-5.2); ALKALINE PHOSPHATASE 103 U/L (46-116); ALT/SGPT 16 U/L (7.0-40); AST/SGOT 14 U/L (<34); BILIRUBIN,TOTAL 0.3 MG/DL (0.3-1.2); BLOOD UREA NITROGEN 7 MG/DL (9-23); CALCIUM LEVEL 8.7 MG/DL (8.5-10.1); CARBON DIOXIDE LEVEL 30 MMOL/L (20-31); CHLORIDE LEVEL 107 MMOL/L (98-107); CHOLESTEROL LEVEL 144 MG/DL (<200); CREATININE FOR GFR 0.71 MG/DL (0.55-1.30); GLOMERULAR FILTRATION RATE > 60.0 (>60); GLUCOSE, FASTING 71 MG/DL (60-100); HDL CHOLESTEROL 51.4 MG/DL (>40); IRON (FE) 25 UG/DL (50-170); LDL CHOLESTEROL 77.2 MG/DL (<100); MAGNESIUM LEVEL 1.4 MG/DL (1.8-2.4); NON-HDL-C 92.6 MG/DL; POTASSIUM SERUM 4.7 MMOL/L (3.5-5.1); SODIUM LEVEL 143 MMOL/L (136-145); TOTAL IRON BINDING CAPACITY 358 UG/DL (250-425); TOTAL PROTEIN 7.1 G/DL (5.7-8.2); TRIGLYCERIDES LEVEL 77 MG/DL (<150)
[2022-11-19 18:20] LABS: FERRITIN 8.5 NG/ML (7.3-270.7)
== END ==
LOC: M PLALAB 15:31
PROVIDERS: ATTEND Student in an Organized Health Care Education/Training Program
DX: D50.8 Other iron deficiency anemias (principal); E55.9 Vitamin D deficiency, unspecified; E66.9 Obesity, unspecified

== ENCOUNTER → 2022-12-02 | Outpatient (CLI) | payer MEDICARE, MEDICAID | LOC: M RAD 08:27 | PROVIDERS: ATTEND Physician Assistant | DX: M79.671 Pain in right foot (principal) ==

== ENCOUNTER → 2022-12-16 | Outpatient (CLI) | payer MEDICARE, MEDICAID | LOC: M WHC 09:52 | PROVIDERS: ATTEND Student in an Organized Health Care Education/Training Program | DX: Z12.31 Encounter for screening mammogram for malignant neoplasm of breast (principal); Z80.3 Family history of malignant neoplasm of breast ==

== ENCOUNTER 2023-01-19 10:26 | Outpatient (CLI) | payer MEDICARE, MEDICAID ==
[~2023-01-19] VITALS: Ht 154.9 cm; Wt 105.8 kg
[~2023-01-19 10:26] MED LIST changes: +ALBUTEROL SULFATE 2.5MG/0.5ML INH NEB SOLN INH PRN; +EPINEPHrine INJ 1 MG/ML 1ML AMP IM PRN; +NS 1,000 ML IV SCH; +diphenhydrAMINE 50MG/ML VIAL IV PRN; +methylPREDNISolone 125MG 2ML VIAL IV PRN
[2023-01-19 10:30] VITALS: BP 133/81; O2SAT 96
[2023-01-19] MEDS ORDERED: IRON SUCROSE 300 MG in NS 250 ML OVER 90 MIN. IV ONE (10:30)
[2023-01-19 12:30] VITALS: BP 123/79; O2SAT 100
== END 2023-01-19 12:32 ==
LOC: M INFU 10:26
PROVIDERS: ATTEND Student in an Organized Health Care Education/Training Program
DX: D50.9 Iron deficiency anemia, unspecified (principal)
CPT/HCPCS: 96365; J1756

== ENCOUNTER → 2023-05-25 | Outpatient (CLI) | payer MEDICARE, MEDICAID ==
[~2023-05-25] MED LIST changes: -ALBUTEROL SULFATE 2.5MG/0.5ML INH NEB SOLN INH PRN; -EPINEPHrine INJ 1 MG/ML 1ML AMP IM PRN; -NS 1,000 ML IV SCH; -diphenhydrAMINE 50MG/ML VIAL IV PRN; -methylPREDNISolone 125MG 2ML VIAL IV PRN
[2023-05-25 13:19] LABS: HEMATOCRIT 42.2 % (36.0-47.0)
[2023-05-25 13:30] LABS: PERCENT SATURATION 25.6 % (13.2-45.0)
[2023-05-25 13:32] LABS: FERRITIN 14.2 NG/ML (7.3-270.7); FREE T4 0.93 NG/DL (0.89-1.76); THYROID STIMULATING HORMONE 1.358 uIU/ML (0.55-4.78)
== END ==
LOC: M PLALAB 10:32
PROVIDERS: ATTEND Student in an Organized Health Care Education/Training Program
DX: E55.9 Vitamin D deficiency, unspecified (principal); E61.2 Magnesium deficiency; R63.5 Abnormal weight gain; D50.0 Iron deficiency anemia secondary to blood loss (chronic); J03.91 Acute recurrent tonsillitis, unspecified

== ENCOUNTER → 2023-05-25 | Outpatient (REF) | payer MEDICARE, MEDICAID | LOC: M SFHCPLAZ 13:32 | PROVIDERS: ATTEND Student in an Organized Health Care Education/Training Program | DX: E55.9 Vitamin D deficiency, unspecified (principal); E61.2 Magnesium deficiency; D50.0 Iron deficiency anemia secondary to blood loss (chronic); J03.91 Acute recurrent tonsillitis, unspecified; E66.9 Obesity, unspecified ==

== ENCOUNTER → 2023-10-05 | Outpatient (CLI) | payer MEDICARE, MEDICAID ==
[2023-10-05 16:45] LABS: HEMOGLOBIN A1c 5.3 % (4.0-6.0)
== END ==
LOC: M PLALAB 12:36
PROVIDERS: ATTEND Student in an Organized Health Care Education/Training Program
DX: E11.69 Type 2 diabetes mellitus with other specified complication (principal)

== ENCOUNTER → 2023-10-27 | Outpatient (CLI) | payer MEDICARE, MEDICAID ==
[2023-10-27 15:50] LABS: HCG, SERUM QUALITATIVE POSITIVE (NEGATIVE)
== END ==
LOC: M PLALAB 12:08
PROVIDERS: ATTEND Student in an Organized Health Care Education/Training Program
DX: Z32.01 Encounter for pregnancy test, result positive (principal)

== ENCOUNTER → 2023-12-09 | Outpatient (REF) | payer MEDICARE, MEDICAID | LOC: M LAB REF 11:45 | PROVIDERS: ATTEND Physician Assistant | DX: B34.9 Viral infection, unspecified (principal) ==

== ENCOUNTER → 2023-12-16 | Outpatient (CLI) | payer MEDICARE, MEDICAID ==
[2023-12-16 13:38] LABS: HEMATOCRIT 40.6 % (36.0-47.0); HEMOGLOBIN 13.7 g/dl (12.0-15.5); MEAN CORPUSCULAR HEMOGLOBIN 27.2 pg (27.0-33.0); MEAN CORPUSCULAR HGB CONC 33.7 g/dl (32.0-36.5); MEAN CORPUSCULAR VOLUME 80.6 fl (80.0-96.0); PLATELET COUNT, AUTOMATED 329 10^3/uL (150-450); RED BLOOD COUNT 5.04 10^6/uL (4.00-5.40); WHITE BLOOD COUNT 9.3 10^3/uL (4.0-10.0)
[2023-12-16 14:43] LABS: HIV 1&2 SCREEN NEGATIVE (NEGATIVE)
[2023-12-16 14:51] LABS: HEPATITIS C VIRUS ABY INDEX 0.03 INDEX (<0.8)
[2023-12-16 16:01] LABS: GC DNA AMPLIFICATION NEGATIVE (NEGATIVE)
== END ==
LOC: M PLALAB 10:54
PROVIDERS: ATTEND Specialist
DX: Z34.80 Encounter for supervision of other normal pregnancy, unspecified trimester (principal); Z79.899 Other long term (current) drug therapy; Z11.3 Encounter for screening for infections with a predominantly sexual mode of transmission; Z11.59 Encounter for screening for other viral diseases

== ENCOUNTER → 2023-12-16 | Outpatient (CLI) | payer MEDICARE, MEDICAID ==
[2023-12-16 14:28] LABS: FERRITIN 21.7 NG/ML (7.3-270.7)
[2023-12-16 14:30] LABS: IRON (FE) 72 UG/DL (50-170)
[2023-12-16 14:31] LABS: PERCENT SATURATION 19.5 % (13.2-45.0); TOTAL IRON BINDING CAPACITY 370 UG/DL (250-425)
[2023-12-16 14:32] LABS: ALKALINE PHOSPHATASE 87 U/L (46-116); ALT/SGPT < 9 U/L (7.0-40); AST/SGOT < 8 U/L (<34); BILIRUBIN,TOTAL 0.3 MG/DL (0.3-1.2); BLOOD UREA NITROGEN 7 MG/DL (9-23); CALCIUM LEVEL 9.3 MG/DL (8.5-10.1); CARBON DIOXIDE LEVEL 23 MMOL/L (20-31); CHLORIDE LEVEL 107 MMOL/L (98-107); CHOLESTEROL LEVEL 180 MG/DL (<200); CHOLESTEROL RISK RATIO 3.33 (<5); GLOMERULAR FILTRATION RATE > 60.0 (>60); GLUCOSE, FASTING 60 MG/DL (60-100); POTASSIUM SERUM 4.4 MMOL/L (3.5-5.1); SODIUM LEVEL 137 MMOL/L (136-145); TOTAL PROTEIN 7.1 G/DL (5.7-8.2); TRIGLYCERIDES LEVEL 110 MG/DL (<150)
== END ==
LOC: M PLALAB 10:51
PROVIDERS: ATTEND Student in an Organized Health Care Education/Training Program
DX: Z98.84 Bariatric surgery status (principal); D50.8 Other iron deficiency anemias; E55.9 Vitamin D deficiency, unspecified; E66.9 Obesity, unspecified

== ENCOUNTER → 2023-12-30 | Outpatient (REF) | payer MEDICARE, MEDICAID | LOC: M SFHCWAGY 13:02 | PROVIDERS: ATTEND Obstetrics & Gynecology | DX: Z34.82 Encounter for supervision of other normal pregnancy, second trimester (principal); Z79.899 Other long term (current) drug therapy ==

== ENCOUNTER 2024-01-14 10:14 | Emergency (ER) | payer MEDICARE, MEDICAID ==
[~2024-01-14] VITALS: Ht 154.9 cm; Wt 112.8 kg
[2024-01-14 14:22] VITALS: BP 105/72; TEMP 97; O2SAT 97
== END 2024-01-14 14:25 | disposition home or self-care (01) ==
LOC: EDBD 10:14 → M ED 10:14
DX: R05.9 Cough, unspecified (principal); R06.02 Shortness of breath; I10 Essential (primary) hypertension; E78.5 Hyperlipidemia, unspecified; Z87.891 Personal history of nicotine dependence; Z91.09 Other allergy status, other than to drugs and biological substances; Z91.040 Latex allergy status

== ENCOUNTER → 2024-02-12 | Outpatient (CLI) | payer MEDICARE, MEDICAID | LOC: M WHC 09:37 | PROVIDERS: ATTEND Obstetrics & Gynecology | DX: Z34.82 Encounter for supervision of other normal pregnancy, second trimester (principal); Z3A.19 19 weeks gestation of pregnancy ==

== ENCOUNTER → 2024-03-14 | Outpatient (CLI) | payer MEDICARE, MEDICAID | LOC: M WHC 11:34 | PROVIDERS: ATTEND Nurse Practitioner Family | DX: Z34.80 Encounter for supervision of other normal pregnancy, unspecified trimester (principal) ==

== ENCOUNTER → 2024-03-29 | Outpatient (CLI) | payer MEDICARE, MEDICAID ==
[2024-03-29 15:12] LABS: HEMATOCRIT 33.8 % (36.0-47.0); HEMOGLOBIN 10.7 g/dl (12.0-15.5); MEAN CORPUSCULAR HEMOGLOBIN 25.8 pg (27.0-33.0); MEAN CORPUSCULAR HGB CONC 31.7 g/dl (32.0-36.5); MEAN CORPUSCULAR VOLUME 81.4 fl (80.0-96.0); PLATELET COUNT, AUTOMATED 280 10^3/uL (150-450); RED BLOOD COUNT 4.15 10^6/uL (4.00-5.40); WHITE BLOOD COUNT 8.6 10^3/uL (4.0-10.0)
[2024-03-29 15:39] LABS: HEMOGLOBIN A1c 5.4 % (4.0-6.0)
[2024-03-29 15:43] LABS: FOLATE 22.3 NG/ML (>5.4)
[2024-03-29 15:48] LABS: GLUCOSE CHALLENGE TEST 1 HOUR 181 MG/DL (LESS THAN 140)
[2024-03-29 15:53] LABS: FERRITIN 6.6 NG/ML (7.3-270.7); TOTAL 25(OH) VITAMIN D 24.8 NG/ML (20.0-100.0)
[2024-03-29 16:13] LABS: GC DNA AMPLIFICATION NEGATIVE (NEGATIVE)
[2024-03-29 16:24] LABS: HIV 1&2 SCREEN NEGATIVE (NEGATIVE)
[2024-03-29 16:31] LABS: HEPATITIS C VIRUS ABY INDEX 0.13 INDEX (<0.8)
== END ==
LOC: M RAD 12:47
PROVIDERS: ATTEND Nurse Practitioner Family
DX: Z34.80 Encounter for supervision of other normal pregnancy, unspecified trimester (principal); Z3A.25 25 weeks gestation of pregnancy; Z79.899 Other long term (current) drug therapy; D50.8 Other iron deficiency anemias; Z11.3 Encounter for screening for infections with a predominantly sexual mode of transmission

== ENCOUNTER → 2024-05-27 | Outpatient (CLI) | payer MEDICARE, MEDICAID | LOC: M WHC 11:17 | PROVIDERS: ATTEND Obstetrics & Gynecology | DX: O26.843 Uterine size-date discrepancy, third trimester (principal); Z3A.34 34 weeks gestation of pregnancy ==

== ENCOUNTER → 2024-06-13 | Outpatient (REF) | payer MEDICARE, MEDICAID | LOC: M SFHCWAGY 16:44 | PROVIDERS: ATTEND Specialist | DX: O09.523 Supervision of elderly multigravida, third trimester (principal) ==

== ENCOUNTER → 2024-10-21 | Outpatient (CLI) | payer MEDICARE, MEDICAID ==
[~2024-10-21] MED LIST changes: +CETI10CA13 PO; +COLA100C5 PO; +PRENTAB40 PO; +TOPI-256 PO; -TOPI25TA10 PO; +TRAM50TA2 PO
[2024-10-21 13:13] LABS: TOTAL 25(OH) VITAMIN D 24.6 NG/ML (20.0-100.0)
[2024-10-21 13:14] LABS: ALT/SGPT 16 U/L (7.0-40); AST/SGOT 17 U/L (<34); CALCIUM LEVEL 9.4 MG/DL (8.5-10.1); CARBON DIOXIDE LEVEL 29 MMOL/L (20-31); CHLORIDE LEVEL 104 MMOL/L (98-107); CREATININE FOR GFR 0.61 MG/DL (0.55-1.30); GLOMERULAR FILTRATION RATE > 90.0 (>60); PLATELET COUNT, AUTOMATED 336 10^3/uL (150-450); POTASSIUM SERUM 4.3 MMOL/L (3.5-5.1); SODIUM LEVEL 142 MMOL/L (136-145)
[2024-10-21 13:16] LABS: VITAMIN B12 LEVEL 467 PG/ML (211-911)
[2024-10-21 13:29] LABS: ESTIMATED AVERAGE GLUCOSE 108.0 MG/DL (60-110)
== END ==
LOC: M PLALAB 10:44
DX: O99.842 Bariatric surgery status complicating pregnancy, second trimester (principal); O99.012 Anemia complicating pregnancy, second trimester; O24.112 Pre-existing type 2 diabetes mellitus, in pregnancy, second trimester; E11.9 Type 2 diabetes mellitus without complications; D50.0 Iron deficiency anemia secondary to blood loss (chronic); E55.9 Vitamin D deficiency, unspecified